=== PATIENT | male | born 1950 | race Caucasian/White ===

== ENCOUNTER 2017-10-29 15:56 | Inpatient (IN) ==
[2017-10-29] MEDS ORDERED: 0.9 % SODIUM CHLORIDE 1,000 ML IV ONE ×3 (16:05→18:55)
--- NOTE | 2017-10-29 16:11 | Emergency Department Note ---
Overdose HPI - General Chief Complaint: Overdose Stated Complaint: Unresponsive, Overdose Time Seen by Provider: 10/29/17 16:05 Mode of arrival: ambulatory - History of Present Illness HPI Narrative[place]. Found down, presumed overdose of sleeping pills. Narcan in the field, unresponsive. Nasal trumpet placed. No resuscitation given. Other history not available - Related Data Home Medications Medication Instructions Recorded Confirmed cholecalciferol (vitamin D3) 400 400 unit PO QDAY 08/29/15 09/14/17 unit capsule ipratropium 20 mcg-albuterol 100 1 inh INHALATION QID 08/29/15 09/14/17 mcg/actuation mist for inhalation omeprazole 20 mg capsule,delayed 20 mg PO QDAY 08/29/15 09/14/17 release oxybutynin chloride ER 10 mg 10 mg PO QDAY 08/29/15 09/14/17 tablet,extended release 24 hr polyethylene glycol 3350 17 17 g PO QDAY 08/29/15 09/14/17 gram/dose oral powder tamsulosin 0.4 mg capsule 0.4 mg PO QDAY 08/29/15 09/14/17 amitriptyline 50 mg tablet 50 mg PO QDAY tab 10/02/15 09/14/17 Previous Rx's Medication Instructions Recorded HYDROcodone/APAP 10/325MG [[place] 1 tab PO Q4H PRN #15 tablet 02/23/17 10/325Mg] Allergies Allergy/AdvReac Type Severity Reaction Status Date / Time chlorpromazine Allergy Unknown unknown Verified 05/31/16 13:57 [From Thorazine] Phenothiazines Allergy Unknown unknown Verified 05/31/16 13:57 Sulfa (Sulfonamide Allergy Unknown unknown Verified 05/31/16 13:57 Antibiotics) Review of Systems Limitations: ROS unobtainable due to patients medical condition Past Medical History - Past Medical History Source: old records reviewed Medical history: Reports: COPD, GERD, kidney stones, other (chronic pain, multiple surgeries on hips) Psychiatric history: Reports: no psych history Surgical history ED: Reports: cholecystectomy, hip replacement, other - Social History smoking status: Current every day smoker Alcohol use: Reports: None Physical Exam General appearance: obtunded Head: atraumatic, normocephalic Eye: Present: other (Constricted pupils, symmetrical) ENT: mucous membranes moist Neck: Present: normal inspection. Absent: lymphadenopathy Chest: Present: normal inspection, symmetric chest wall rise, other (Grunting slightly) Respiratory: Present: normal lung sounds bilaterally. Absent: respiratory distress Cardiovascular: Present: regular rate, normal rhythm Abdominal: Present: soft. Absent: tenderness Extremities: Present: normal inspection Neurological: Present: other (Symmetrical tone, GCS 7) Skin: Present: intact Course - Reevaluation(s) Reevaluation #1: report of 75 baclofen ingested, daughter reported to nursing by phone that patient had told her of suicide plan and intent. poison control notified, advises tele monitoring and airway 24-48 hrs Time: 18:21 Vital Signs Temperature 96.6 F L 10/29/17 16:04 Pulse Rate 67 10/29/17 16:04 Respiratory Rate 10 L 10/29/17 16:04 Blood Pressure 187/102 10/29/17 16:04 Pulse Oximetry (%) 95 10/29/17 16:04 Temperature 96.4 F L 10/29/17 18:02 Pulse Rate 91 H 10/29/17 18:13 Respiratory Rate 17 10/29/17 18:13 Blood Pressure 182/107 10/29/17 18:01 Pulse Oximetry (%) 96 10/29/17 18:13 Overdose - Lab Data Lab results reviewed: Yes I reviewed the patient's lab results. Result diagrams: 10/29/17 16:11 10/29/17 16:11 Lab Results 10/29/17 10/29/17 10/29/17 Range/Units 16:11 16:11 16:11 WBC 10.0 (4.5-11.0) K/mcL RBC 4.52 (4.50-5.90) M/mcL Hgb 13.5 (13.5-16.5) g/dL Hct 40.1 L (41.0-55.0) % MCV 88.8 (80.0-100.0) fL MCH 29.8 (26.0-34.0) pg MCHC 33.6 (31.0-36.0) g/dL RDW 14.6 H (11.5-14.5) % Plt Count 129 L (140-440) K/mcL MPV 9.9 (7.4-10.4) fL Gran % 80.4 H (38.0-78.0) % Lymph % (Auto) 9.9 L (15.5-49.0) % [place] % (Auto) 8.6 (1.0-12.0) % Eos % (Auto) 0.8 (0.0-7.0) % Baso % (Auto) 0.3 (0.0-2.0) % Gran # 8.1 H (1.8-8.0) K/mcL Lymph # (Auto) 1.0 L (1.5-4.8) K/mcL [place] # (Auto) 0.9 (0.1-0.9) K/mcL Eos # (Auto) 0.1 (0.0-0.7) K/mcL Baso # (Auto) 0 (0.0-0.3) K/mcL Sodium 133 (133-145) mmol/L Potassium 4.4 (3.3-5.1) mmol/L Chloride 95 L (96-108) mmol/L Carbon Dioxide 24 (22-30) mmol/L Anion Gap 14.0 (8-16) BUN 19 (8-23) mg/dl Creatinine 0.8 (0.7-1.2) mg/dl GFR Calculation 93 Glucose 112 H (70-105) mg/dL Calcium 8.8 (8.6-10.4) mg/dl Total Bilirubin 0.3 (0.0-1.0) mg/dL AST 45 H (0-37) U/l ALT 59 H (0-40) U/l Alkaline Phosphatase 74 (39-117) U/L Troponin T (0-0.03) ng/ml Total Protein 7.2 (5.9-8.4) gm/dL Albumin 4.1 (3.2-5.2) gm/dL Globulin 3.1 (2.2-3.7) gm/dL Albumin/Globulin Ratio 1.3 (1.0-2.3) Urine Color Urine Appearance Urine pH (5.0-9.0) Ur Specific [place] (1.000-1.035) Urine Protein (NEG) mg/dL Urine Glucose (UA) (NEG) mg/dL Urine Ketones (NEG) mg/dL Urine Occult Blood (<0.03) mg/dL Urine Nitrate (NEG) Urine Bilirubin (NEG) mg/dL Urine Urobilinogen (NEG) mg/dL Ur Leukocyte Esterase (NEG) /uL Urine RBC (0-1) /hpf Urine WBC (0-4) /hpf Ur Squamous Epith Cells (0-4) /hpf Urine Bacteria (0) /hpf Hyaline Casts (0-2) /lpf Urine Mucus (0) /hpf Ur Culture Indicated? (()) Salicylates mg/dL Urine Opiates Screen (NONDETECTED) Urine Methadone Screen (NONDETECTED) Acetaminophen ug/mL Ur Barbiturates Screen (NONDETECTED) Ur Phencyclidine Scrn (NONDETECTED) Ur Amphetamines Screen (NONDETECTED) U Benzodiazepines Scrn (NONDETECTED) Urine Cocaine Screen (NONDETECTED) U Marijuana (THC) Screen (NONDETECTED) Ethyl Alcohol < 0.010 (<0.010) gm/dl 10/29/17 10/29/17 10/29/17 Range/Units 16:11 16:11 16:31 WBC (4.5-11.0) K/mcL RBC (4.50-5.90) M/mcL Hgb (13.5-16.5) g/dL Hct (41.0-55.0) % MCV (80.0-100.0) fL MCH (26.0-34.0) pg MCHC (31.0-36.0) g/dL RDW (11.5-14.5) % Plt Count (140-440) K/mcL MPV (7.4-10.4) fL Gran % (38.0-78.0) % Lymph % (Auto) (15.5-49.0) % [place] % (Auto) (1.0-12.0) % Eos % (Auto) (0.0-7.0) % Baso % (Auto) (0.0-2.0) % Gran # (1.8-8.0) K/mcL Lymph # (Auto) (1.5-4.8) K/mcL [place] # (Auto) (0.1-0.9) K/mcL Eos # (Auto) (0.0-0.7) K/mcL Baso # (Auto) (0.0-0.3) K/mcL Sodium (133-145) mmol/L Potassium (3.3-5.1) mmol/L Chloride (96-108) mmol/L Carbon Dioxide (22-30) mmol/L Anion Gap (8-16) BUN (8-23) mg/dl Creatinine (0.7-1.2) mg/dl GFR Calculation Glucose (70-105) mg/dL Calcium (8.6-10.4) mg/dl Total Bilirubin (0.0-1.0) mg/dL AST (0-37) U/l ALT (0-40) U/l Alkaline Phosphatase (39-117) U/L Troponin T < 0.01 (0-0.03) ng/ml Total Protein (5.9-8.4) gm/dL Albumin (3.2-5.2) gm/dL Globulin (2.2-3.7) gm/dL Albumin/Globulin Ratio (1.0-2.3) Urine Color Urine Appearance Urine pH (5.0-9.0) Ur Specific [place] (1.000-1.035) Urine Protein (NEG) mg/dL Urine Glucose (UA) (NEG) mg/dL Urine Ketones (NEG) mg/dL Urine Occult Blood (<0.03) mg/dL Urine Nitrate (NEG) Urine Bilirubin (NEG) mg/dL Urine Urobilinogen (NEG) mg/dL Ur Leukocyte Esterase (NEG) /uL Urine RBC (0-1) /hpf Urine WBC (0-4) /hpf Ur Squamous Epith Cells (0-4) /hpf Urine Bacteria (0) /hpf Hyaline Casts (0-2) /lpf Urine Mucus (0) /hpf Ur Culture Indicated? (()) Salicylates < 0.3 mg/dL Urine Opiates Screen None detected (NONDETECTED) Urine Methadone Screen None detected (NONDETECTED) Acetaminophen < 5.0 ug/mL Ur Barbiturates Screen None detected (NONDETECTED) Ur Phencyclidine Scrn None detected (NONDETECTED) Ur Amphetamines Screen None detected (NONDETECTED) U Benzodiazepines Scrn None detected (NONDETECTED) Urine Cocaine Screen None detected (NONDETECTED) U Marijuana (THC) Screen Suspect positive A (NONDETECTED) Ethyl Alcohol (<0.010) gm/dl 10/29/17 Range/Units 16:31 WBC (4.5-11.0) K/mcL RBC (4.50-5.90) M/mcL Hgb (13.5-16.5) g/dL Hct (41.0-55.0) % MCV (80.0-100.0) fL MCH (26.0-34.0) pg MCHC (31.0-36.0) g/dL RDW (11.5-14.5) % Plt Count (140-440) K/mcL MPV (7.4-10.4) fL Gran % (38.0-78.0) % Lymph % (Auto) (15.5-49.0) % [place] % (Auto) (1.0-12.0) % Eos % (Auto) (0.0-7.0) % Baso % (Auto) (0.0-2.0) % Gran # (1.8-8.0) K/mcL Lymph # (Auto) (1.5-4.8) K/mcL [place] # (Auto) (0.1-0.9) K/mcL Eos # (Auto) (0.0-0.7) K/mcL Baso # (Auto) (0.0-0.3) K/mcL Sodium (133-145) mmol/L Potassium (3.3-5.1) mmol/L Chloride (96-108) mmol/L Carbon Dioxide (22-30) mmol/L Anion Gap (8-16) BUN (8-23) mg/dl Creatinine (0.7-1.2) mg/dl GFR Calculation Glucose (70-105) mg/dL Calcium (8.6-10.4) mg/dl Total Bilirubin (0.0-1.0) mg/dL AST (0-37) U/l ALT (0-40) U/l Alkaline Phosphatase (39-117) U/L Troponin T (0-0.03) ng/ml Total Protein (5.9-8.4) gm/dL Albumin (3.2-5.2) gm/dL Globulin (2.2-3.7) gm/dL Albumin/Globulin Ratio (1.0-2.3) Urine Color Yellow Urine Appearance Clear Urine pH 5.0 (5.0-9.0) Ur Specific [place] 1.016 (1.000-1.035) Urine Protein Neg (NEG) mg/dL Urine Glucose (UA) Negative (NEG) mg/dL Urine Ketones Neg (NEG) mg/dL Urine Occult Blood >=1.0 A (<0.03) mg/dL Urine Nitrate Neg (NEG) Urine Bilirubin Neg (NEG) mg/dL Urine Urobilinogen Neg (NEG) mg/dL Ur Leukocyte Esterase Neg (NEG) /uL Urine RBC 52 H (0-1) /hpf Urine WBC 1 (0-4) /hpf Ur Squamous Epith Cells 0 (0-4) /hpf Urine Bacteria 0 (0) /hpf Hyaline Casts 1 (0-2) /lpf Urine Mucus Few (0) /hpf Ur Culture Indicated? No (()) Salicylates mg/dL Urine Opiates Screen (NONDETECTED) Urine Methadone Screen (NONDETECTED) Acetaminophen ug/mL Ur Barbiturates Screen (NONDETECTED) Ur Phencyclidine Scrn (NONDETECTED) Ur Amphetamines Screen (NONDETECTED) U Benzodiazepines Scrn (NONDETECTED) Urine Cocaine Screen (NONDETECTED) U Marijuana (THC) Screen (NONDETECTED) Ethyl Alcohol (<0.010) gm/dl - Radiology Data Radiology results reviewed: Yes I reviewed the patient's radiology results. no infiltrate - EKG Data EKG attestation: Yes I reviewed and interpreted this EKG. EKG shows normal: sinus rhythm Critical Care Time Critical Care Time: Yes Total Critical Care Time: 45 Attestation: Hypercarbia, hypoventilatory requiring BiPAP support Disposition Pt seen by SLOOP CAPTAIN/PA only: No Clinical Impression: Drug overdose, Suicide attempt by multiple drug overdose, Respiratory failure Disposition: Xfer As Inpt ([facility]) Condition: Serious Referrals: Lakisha Alexander DO [Primary Care Provider] -
[2017-10-29] MEDS ORDERED: ONDANSETRON 4 MG/2 ML VIAL ONE (16:25)
[2017-10-29] MEDS ORDERED: ONDANSETRON 4 MG/2 ML VIAL IV ONE (16:34)
--- NOTE | 2017-10-29 16:54 | XRay Report ---
INDICATION: Possible drug overdose TECHNIQUE: AP chest x-ray,portable upright COMPARISON: 05/31/2016 and 09/26/2009 FINDINGS:Lungs are negative. No parenchymal infiltrate or mass. Heart size and vascularity are unremarkable. No pulmonary edema. No pulmonary congestion. Yessi and mediastinum are negative. No pleural fluid. There is a crescentic vascular and bony the left hemidiaphragm. Appearance is consistent with intragastric air. There is no air above the liver IMPRESSION: Negative portable chest x-ray Interpreted and Authenticated by: Lenny Louise 10/29/17
[2017-10-29 17:01] LABS: Basophils # (Auto) 0 K/mcL (0.0-0.3); Basophils % (Auto) 0.3 % (0.0-2.0); Eosinophils # (Auto) 0.1 K/mcL (0.0-0.7); Eosinophils % (Auto) 0.8 % (0.0-7.0); Granulocytes % (Auto) 80.4 % (38.0-78.0); Lymphocytes % (Auto) 9.9 % (15.5-49.0); Mean Cell Volume 88.8 fL (80.0-100.0); Mean Corpuscular HGB Conc 33.6 g/dL (31.0-36.0); Mean Corpuscular Hemoglobin 29.8 pg (26.0-34.0); Monocytes # (Auto) 0.9 K/mcL (0.1-0.9); Monocytes % (Auto) 8.6 % (1.0-12.0); Platelet Count 129 K/mcL (140-440); RBC 4.52 M/mcL (4.50-5.90); Red Cell Distribution Width 14.6 % (11.5-14.5)
[2017-10-29 17:09] LABS: Appearance,Urine CLEAR; Bacteria,Urine 0 /hpf (0); Bilirubin,Urine NEG (NEG); Color,Urine YELLOW; Glucose,Urine (UA) NEGATIVE (NEG); Leukocyte Esterase,Urine NEG /uL (NEG); Mucus,Urine FEW /hpf (0); Nitrate,Urine NEG (NEG); Protein,Urine NEG (NEG); Specific Gravity,Urine 1.016 (1.000-1.035); Urine Blood >=1.0 mg/dL (<0.03); Urine Hyaline Cast 1 /lpf (0-2); Urine RBC 52 /hpf (0-1); Urine Squamous Epithelial Cell 0 /hpf (0-4); Urine WBC 1 /hpf (0-4); Urobilinogen,Urine NEG (NEG)
--- NOTE | 2017-10-29 17:22 | XRay Report ---
CLINICAL INFORMATION: Nasogastric tube placement TECHNIQUE: AP supine abdomen COMPARISON: None. FINDINGS: Esophagogastric tube in the proximal stomach. The sidehole is at the level of the diaphragm. There is a bubbly appearance consistent with semisolid material in the stomach. IMPRESSION: Esophagogastric tube in the proximal stomach Interpreted and Authenticated by: Lenny Louise 10/29/17
[2017-10-29 17:24] LABS: Amphetamine Screen,Urine NONE DETECTED (NONDETECTED); Benzodiazepines Screen,Urine NONE DETECTED (NONDETECTED); Cocaine Screen,Urine NONE DETECTED (NONDETECTED); Opiate Screen,Urine NONE DETECTED (NONDETECTED)
[2017-10-29 17:29] LABS: ALT/SGPT 59 U/l (0-40); Albumin 4.1 gm/dL (3.2-5.2); Albumin/Globulin Ratio 1.3 (1.0-2.3); Alkaline Phosphatase 74 U/L (39-117); Blood Urea Nitrogen 19 mg/dl (8-23)
[2017-10-29 17:51] LABS: Acetaminophen < 5.0 ug/mL; Salicylate < 0.3 mg/dL
[2017-10-29] MEDS ORDERED: ONDANSETRON 4 MG/2 ML VIAL IV PRN (19:52)
[2017-10-29] MEDS: 0.9 % SODIUM CHLORIDE 10 ML SYRINGE IV SCH (22:13)
[2017-10-29] MEDS: 0.9 % SODIUM CHLORIDE 1,000 ML IV SCH (22:52)
--- NOTE | 2017-10-29 23:16 | Internal Med History&Physical ---
Medical - H&P: [facility] Patient information: Note initiated : 10/29/17 at 11:16 pm Service Date, if different from initiated Date: [] Patient: Uriel Mike a 67 y/o M admitted on 10/29/17 for Unresponsive, Overdose. Chief complaint: AMS History of present illness: Mr. Mike is a 67 year old M, presented by way of ambulance to ED, after found down by room mate. Presumed overdose of sleeping pills. Apparently had called daughter earlier in the day that he was planning to take 75 tablets of Baclofen. As per EMT patient was unresponsive, not responding to Narcan. Nasal trumpet placed. Upon arrival to ED patient was placed on BiPAP ventilator support, requiring 50 % O2 and 5/10 pressures. Temp was 94 and bear hugger was placed on patient. ROS unobtainable: due to mental status Medical - H&P: PMH Medical history: Medical History Osteoarthritis (arthritis due to wear and tear of joints) (Acute) Toe pain, right (Acute) Chest pain (Acute) Muscle spasm (Acute) Drug overdose (Acute) Suicide attempt by multiple drug overdose (Acute) Respiratory failure (Acute) Hx of urinary tract infection (Chronic) Nephrolithiasis (Chronic) Legg-Perthes disease (Chronic) Kidney stones (Chronic) Hepatitis C, chronic (Chronic 09/13/13) Gastroesophageal reflux (Chronic) COPD (chronic obstructive pulmonary disease) (Chronic) Carpal tunnel syndrome (Chronic) Benign localized hyperplasia of prostate without urinary obstruction (Chronic) Adenomatous polyps (Chronic 09/27/13) Surgical history: Past Surgical History Hx of nephrolithotomy with removal of calculi (Acute) Hx of cholecystectomy (Acute) Family history: reviewed and not pertinent Medical - H&P: Meds Home Medications Medication Instructions Recorded Confirmed Type cholecalciferol (vitamin D3) 400 400 unit PO QDAY 08/29/15 09/14/17 History unit capsule ipratropium 20 mcg-albuterol 100 1 inh INHALATION QID 08/29/15 09/14/17 History mcg/actuation mist for inhalation omeprazole 20 mg capsule,delayed 20 mg PO QDAY 08/29/15 09/14/17 History release oxybutynin chloride ER 10 mg 10 mg PO QDAY 08/29/15 09/14/17 History tablet,extended release 24 hr polyethylene glycol 3350 17 17 g PO QDAY 08/29/15 09/14/17 History gram/dose oral powder tamsulosin 0.4 mg capsule 0.4 mg PO QDAY 08/29/15 09/14/17 History amitriptyline 50 mg tablet 50 mg PO QDAY tab 10/02/15 09/14/17 History HYDROcodone/APAP 10/325MG [[place] 1 tab PO Q4H PRN #15 tablet 02/23/17 09/14/17 Rx 10/325Mg] Allergies Allergy/AdvReac Type Severity Reaction Status Date / Time chlorpromazine Allergy Unknown unknown Verified 05/31/16 13:57 [From Thorazine] Phenothiazines Allergy Unknown unknown Verified 05/31/16 13:57 Sulfa (Sulfonamide Allergy Unknown unknown Verified 05/31/16 13:57 Antibiotics) Medical - H&P: Exam - Constitutional Vitals: Temp Pulse Resp BP Pulse Ox 97.7 F 86 8 L 173/102 94 10/29/17 23:01 10/29/17 23:01 10/29/17 23:01 10/29/17 23:01 10/29/17 23:01 General appearance: average body habitus, disheveled - Head Head exam: Present: normal inspection - Eye Pupils: Present: miosis - Respiratory Respiratory exam: Present: normal respiratory exam - Cardiovascular Cardiovascular exam: Present: normal rate and rhythm - GI/Abdominal GI/Abdominal exam: Present: normal bowel sounds, soft - Rectal Rectal exam: Present: deferred Medical - H&P: Reslt - Labs CBC & Chem 7: 10/29/17 16:11 10/29/17 16:11 Labs: Short CBC 10/29/17 Range/Units 16:11 WBC 10.0 (4.5-11.0) K/mcL Hgb 13.5 (13.5-16.5) g/dL Hct 40.1 L (41.0-55.0) % Plt Count 129 L (140-440) K/mcL BMP 10/29/17 16:11 Sodium 133 Potassium 4.4 Chloride 95 L Carbon Dioxide 24 BUN 19 Creatinine 0.8 Glucose 112 H Calcium 8.8 Cardiac Enzymes 10/29/17 Range/Units 16:11 Troponin T < 0.01 (0-0.03) ng/ml Liver Function 10/29/17 Range/Units 16:11 Total Bilirubin 0.3 (0.0-1.0) mg/dL AST 45 H (0-37) U/l ALT 59 H (0-40) U/l Alkaline Phosphatase 74 (39-117) U/L Albumin 4.1 (3.2-5.2) gm/dL Urine 10/29/17 Range/Units 16:31 Urine Color Yellow Urine Appearance Clear Urine pH 5.0 (5.0-9.0) Ur Specific [place] 1.016 (1.000-1.035) Urine Protein Neg (NEG) mg/dL Urine Glucose (UA) Negative (NEG) mg/dL Medical - H&P: A/P (1) Drug overdose Current visit: Yes Status: Acute - Narrative A/P Narrative: 67-YEAR-OLD MALE FOUND DOWN BY ROOM MATE AFTER INGESTION OF UNKNOWN MEDS, LIKELY BACLOFEN. + DRUG OD SUPPORTIVE SUPPORT IVF NON-INVASIVE VENTILATOR SUPPORT PPI + AMS DUE TO DOD + SUICIDE ATTEMPT PSYCH EVAL ONCE STABLE DVT PROPHYLAXIS: LOVENOX
[2017-10-30] MEDS: IPRATROPIUM/ALBUTEROL 3 ML AMPUL.NEB NEB SCH ×4 (01:09→19:28)
[2017-10-30] MEDS: 0.9 % SODIUM CHLORIDE 10 ML SYRINGE IV SCH ×3 (05:40→22:19)
[2017-10-30 05:43] LABS: Basophils # (Auto) 0 K/mcL (0.0-0.3); Basophils % (Auto) 0.1 % (0.0-2.0); Eosinophils # (Auto) 0.1 K/mcL (0.0-0.7); Eosinophils % (Auto) 0.8 % (0.0-7.0); Granulocytes % (Auto) 83.3 % (38.0-78.0); Lymphocytes # (Auto) 0.7 K/mcL (1.5-4.8); Lymphocytes % (Auto) 7.9 % (15.5-49.0); Mean Cell Volume 89.3 fL (80.0-100.0); Mean Corpuscular HGB Conc 32.6 g/dL (31.0-36.0); Mean Corpuscular Hemoglobin 29.1 pg (26.0-34.0); Monocytes # (Auto) 0.7 K/mcL (0.1-0.9); Monocytes % (Auto) 7.9 % (1.0-12.0); Platelet Count 121 K/mcL (140-440); RBC 4.87 M/mcL (4.50-5.90); Red Cell Distribution Width 14.5 % (11.5-14.5)
[2017-10-30 06:08] LABS: Albumin 3.9 gm/dL (3.2-5.2); Blood Urea Nitrogen 13 mg/dl (8-23)
--- NOTE | 2017-10-30 07:29 | XRay Report ---
INDICATION: Drug overdose TECHNIQUE: AP chest x-ray,portable COMPARISON: 10/29/2017 and 05/31/2016 FINDINGS:Esophagogastric tube is unchanged. Tip is in the proximal stomach. Lungs are negative. No acute or focal pulmonary parenchymal infiltrate. No parenchymal mass. Heart size and vascularity are normal. No acute abnormalities. IMPRESSION: Negative AP chest x-ray Interpreted and Authenticated by: Lenny Louise 10/30/17
[2017-10-30] MEDS: ENOXAPARIN 40 MG/0.4 ML SYRINGE SQ SCH (08:39)
[2017-10-30] MEDS: 0.9 % SODIUM CHLORIDE 1,000 ML IV SCH ×2 (08:49→18:39)
[2017-10-30] MEDS: LORazepam 2 MG/ML VIAL IV PRN ×4 (12:20→20:41)
--- NOTE | 2017-10-30 15:54 | Internal Med Progress Note ---
Medical - PN: Subj Patient information: Note initiated : 10/30/17 at 3:47 pm Service Date, if different from initiated Date: [] Patient: Uriel Mike 67 y/o M admitted on 10/29/17 for Unresponsive, Overdose. Interval history: 10/30: OVERNIGHT BIPAP. REMAINS NON-RESPONSIVE TO VERBAL AND TACTILE STIMULI. ET- SUCTIONING FOR SIGNIFICANT AMOUNT OF MUCOID SECRETIONS. WITH SUCTIONING OPENS EYES AND BECOMES AGITATED. GAG REFLEX PRESENT. CARE D/W RT AND NURSING STAFF: ET-INTUBATION AND VENT SUPPORT WOULD PROVIDE AIRWAY PROTECTION AND ABILITY TO CLEAR AIRWAY. WILL PROCEED IF WORSENING CONDITION. AT THIS TIME, STABLE, ABLE TO DO ET SUCTIONING AND APPEARS TO BECOME SLIGHTLY MORE RESPONSIVE. DISCUSSED WITH HIS 2 DAUGHTERS AND GRAND DAUGHTER. THEY AGREE TO VENTILATOR SUPPORT IF TEMPORARY AND WITH CHANGE FOR RECOVERY. HOWEVER, AT THIS TIME FULL RECOVERY OF COGNITION IS UNCERTAIN. WILL CONTINUE TO CLOSELY OBSERVE ON BIPAP AND PROVIDE AGGRESSIVE PULM TOILET. - Constitutional Vitals: Vital Signs Temp Pulse Resp BP Pulse Ox 98.5 F 71 13 176/88 97 10/30/17 12:02 10/30/17 13:14 10/30/17 13:14 10/30/17 12:02 10/30/17 13:14 Period Temp Pulse Resp BP Sys/[place] Pulse Ox Last 24 Hr 94.4 F-98.6 F 58-105 6-20 132-209/81-127 86-100 Intake and Output 10/30/17 10/30/17 10/30/17 05:59 13:59 21:59 Intake Total 500 / 500 995 / 995 Output Total 2550 / 2550 1125 / 1125 Balance -2049 -2049 -130 / -130 Weight 152 lb 6.4 oz Patient Weight 10/31/17 05:59 Weight 152 lb 6.4 oz Intake & Output: Intake & Output 10/30/17 10/30/17 10/30/17 05:59 13:59 21:59 Intake Total 500 / 500 995 / 995 Output Total 2550 / 2550 1125 / 1125 Balance -2049 / -130 / -130 Weight 152 lb 6.4 oz Intake: IV 500 / 500 995 / 995 Sodium Chloride 0.9% 1,000 ml @ 995 / 995 100 mls/hr IV .Q10H MARIA LUZ Rx#: [id number] Output: Urine Catheter Amount 2550 / 2550 1125 / 1125 General appearance: disheveled, thin - Respiratory Respiratory exam: Present: rhonchi Additional comments: ON BIPAP NON-INVASIVE VENTILATOR SUPPORT - Cardiovascular Cardiovascular exam: Present: normal rate and rhythm - GI/Abdominal GI/Abdominal exam: Present: normal bowel sounds, soft - Extremities Exam Extremities exam: Present: normal inspection Medical - PN: Obj Da - Labs CBC & Chem 7: 10/30/17 03:46 10/30/17 03:46 Labs: Abnormal Lab Results 10/30/17 10/29/17 10/29/17 03:46 16:31 16:31 Hct RDW Plt Count 121 L Gran % 83.3 H Lymph % (Auto) 7.9 L Gran # Lymph # (Auto) 0.7 L Chloride Glucose AST ALT Urine Occult Blood >=1.0 A Urine RBC 52 H U Marijuana (THC) Screen Suspect positive A 10/29/17 10/29/17 16:11 16:11 Hct 40.1 L RDW 14.6 H Plt Count 129 L Gran % 80.4 H Lymph % (Auto) 9.9 L Gran # 8.1 H Lymph # (Auto) 1.0 L Chloride 95 L Glucose 112 H AST 45 H ALT 59 H Urine Occult Blood Urine RBC U Marijuana (THC) Screen Meds: Medications Albuterol/Ipratropium (Duoneb) 3 ml NEB Q6HRT [facility] Last Admin: 10/30/17 13:11 Dose: 3 ml Enoxaparin Sodium (Lovenox) 40 mg SQ DAILY [facility] Last Admin: 10/30/17 08:39 Dose: 40 mg Sodium Chloride (Sodium Chloride 0.9%) 1,000 mls @ 100 mls/hr IV .Q10H [facility] Last Admin: 10/30/17 08:49 Dose: 100 mls/hr Lorazepam (Ativan) 1 mg IV Q2HP PRN PRN Reason: Agitation Last Admin: 10/30/17 14:30 Dose: 1 mg Ondansetron HCl (Zofran) 4 mg IV Q4-6HP PRN PRN Reason: Nausea And Vomiting Sodium Chloride (Saline Flush) 10 ml IV Q8 [facility] Last Admin: 10/30/17 05:40 Dose: 10 ml Medical - PN: A/P - Time Spent With Patient Total time spent is greater than 50% in coordination of care (as documented) at patient's floor/unit and/or counseling patient: 25 - 35 minutes (1) Drug overdose Status: Acute Current Visit: Yes - Narrative A/P Narrative: A/P Narrative: 67-YEAR-OLD MALE FOUND DOWN BY ROOM MATE AFTER INGESTION OF UNKNOWN MEDS, LIKELY BACLOFEN. + DRUG OD SUPPORTIVE SUPPORT IVF NON-INVASIVE VENTILATOR SUPPORT PPI + AMS DUE TO DOD + SUICIDE ATTEMPT PSYCH EVAL ONCE STABLE PLAN: CONTINUE NON-INVASIVE VENTILATOR SUPPORT WITH BIPAP AND AGGRESSIVE PULMONARY TOILET. IVF Medical - PN: Qual - VTE Deep Vein Thrombosis/Pulmonary Embolism Present on Admission: No
[2017-10-30] MEDS ORDERED: PROPOFOL 200 MG/20 ML VIAL IV ONE (17:30)
[2017-10-30] MEDS ORDERED: MIDAZOLAM 5 MG/5 ML VIAL IV ONE (17:30)
[2017-10-30] MEDS ORDERED: ROCURONIUM 10 MG/ML ML IV ONE (17:30)
--- NOTE | 2017-10-30 17:57 | XRay Report ---
INDICATION: Intubation TECHNIQUE: AP chest x-ray, semierect portable COMPARISON: Previous examination dated 10/30/2017 FINDINGS:Endotracheal tube with its tip 4 cm above the michelle. No change in position of esophagogastric tube. Lungs remain normal. No focal infiltrate or mass. Heart size and vascularity are normal. IMPRESSION: Endotracheal tube tip 4 cm above the michelle Interpreted and Authenticated by: Lenny Louise 10/30/17
[2017-10-30] MEDS: PROPOFOL 1,000 MG in PREMIX 1 BAG IV SCH (19:00)
[2017-10-30] MEDS: CHLORHEXIDINE GLUCONATE 1 ML ORAL.SOL SWABMOUTH SCH (20:43)
[2017-10-31] MEDS: IPRATROPIUM/ALBUTEROL 3 ML AMPUL.NEB NEB SCH ×4 (00:23→19:04)
[2017-10-31] MEDS: LORazepam 2 MG/ML VIAL IV PRN ×3 (00:51→07:23)
[2017-10-31] MEDS ORDERED: ACETAMINOPHEN 1,000 MG/100 ML BOTTLE IV ONE (02:06)
[2017-10-31] MEDS: PROPOFOL 1,000 MG in PREMIX 1 BAG IV SCH ×3 (02:18→18:42)
[2017-10-31] MEDS: PIPERACILLIN SODIUM/TAZOBACTAM 3.375 GM in DEXTROSE 5% IN WATER 50 ML IV SCH ×4 (03:17→17:56)
[2017-10-31 03:35] LABS: Basophils # (Auto) 0 K/mcL (0.0-0.3); Basophils % (Auto) 0 % (0.0-2.0); Eosinophils # (Auto) 0 K/mcL (0.0-0.7); Eosinophils % (Auto) 0.3 % (0.0-7.0); Granulocytes % (Auto) 90.4 % (38.0-78.0); Lymphocytes # (Auto) 0.6 K/mcL (1.5-4.8); Lymphocytes % (Auto) 6.5 % (15.5-49.0); Mean Cell Volume 88.4 fL (80.0-100.0); Mean Corpuscular Hemoglobin 29.2 pg (26.0-34.0); Monocytes # (Auto) 0.2 K/mcL (0.1-0.9); Monocytes % (Auto) 2.8 % (1.0-12.0); Platelet Count 105 K/mcL (140-440); RBC 4.71 M/mcL (4.50-5.90); Red Cell Distribution Width 14.2 % (11.5-14.5)
[2017-10-31 04:06] LABS: ALT/SGPT 51 U/l (0-40); Albumin 3.6 gm/dL (3.2-5.2); Albumin/Globulin Ratio 1.1 (1.0-2.3); Alkaline Phosphatase 75 U/L (39-117); Blood Urea Nitrogen 12 mg/dl (8-23)
[2017-10-31] MEDS: 0.9 % SODIUM CHLORIDE 1,000 ML IV SCH ×3 (05:25→21:30)
--- NOTE | 2017-10-31 07:09 | XRay Report ---
INDICATION: Drug overdose. Follow-up. TECHNIQUE: AP chest x-ray,portable COMPARISON: Previous examinations dated 10/30/2017 and 10/29/2017 FINDINGS:No change in position of endotracheal tube and esophagogastric tube. Endotracheal tube tip remains 4 cm above the michelle. Lungs are negative. No parenchymal infiltrate or mass. Heart size and vascularity are normal. No acute or focal abnormality. IMPRESSION: 1. No change in endotracheal tube or esophagogastric tube 2. No acute or focal abnormality Interpreted and Authenticated by: Lenny Louise 10/31/17
[2017-10-31] MEDS: 0.9 % SODIUM CHLORIDE 10 ML SYRINGE IV SCH ×3 (07:23→21:25)
[2017-10-31] MEDS: PANTOPRAZOLE 40 MG VIAL IV SCH (08:21)
[2017-10-31] MEDS: CHLORHEXIDINE GLUCONATE 1 ML ORAL.SOL SWABMOUTH SCH ×2 (08:21→21:24)
[2017-10-31] MEDS: ENOXAPARIN 40 MG/0.4 ML SYRINGE SQ SCH (08:22)
--- NOTE | 2017-10-31 12:46 | Internal Med Progress Note ---
Medical - PN: Subj Patient information: Note initiated : 10/31/17 at 12:42 pm Service Date, if different from initiated Date: [] Patient: Uriel Mike 67 y/o M admitted on 10/29/17 for Unresponsive, Overdose. Interval history: 10/30: OVERNIGHT BIPAP. REMAINS NON-RESPONSIVE TO VERBAL AND TACTILE STIMULI. ET- SUCTIONING FOR SIGNIFICANT AMOUNT OF MUCOID SECRETIONS. WITH SUCTIONING OPENS EYES AND BECOMES AGITATED. GAG REFLEX PRESENT. CARE D/W RT AND NURSING STAFF: ET-INTUBATION AND VENT SUPPORT WOULD PROVIDE AIRWAY PROTECTION AND ABILITY TO CLEAR AIRWAY. WILL PROCEED IF WORSENING CONDITION. AT THIS TIME, STABLE, ABLE TO DO ET SUCTIONING AND APPEARS TO BECOME SLIGHTLY MORE RESPONSIVE. DISCUSSED WITH HIS 2 DAUGHTERS AND GRAND DAUGHTER. THEY AGREE TO VENTILATOR SUPPORT IF TEMPORARY AND WITH CHANGE FOR RECOVERY. HOWEVER, AT THIS TIME FULL RECOVERY OF COGNITION IS UNCERTAIN. WILL CONTINUE TO CLOSELY OBSERVE ON BIPAP AND PROVIDE AGGRESSIVE PULM TOILET. AROUND 5 PM MORE AGITATION, DESPITE ATIVAN. NON-PURPOSEFUL MOVEMENT OF UPPER BODY AND LOWER EXTREMITIES. NO MEANINGFUL COMMUNICATION. ANESTHESIA CONSULTED TO INTUBATE IN ORDER TO BE ABLE TO CONTROL AIRWAYS AND MAKE PATIENT MORE COMFORTABLE WITH SEDATIVES. INTUBATED WO DIFFICULTY BY ANESTHESIA. # 8 IN. 10/31: TEMP SPIKE OVERNIGHT. HEMODYNAMICS STABLE. BLOOD C/S OBTAINED. ZOSYN STARTED. NEURO STATUS SAME. ON PROPOFOL LIGHTLY SEDATED. - Constitutional Vitals: Vital Signs Temp Pulse Resp BP Pulse Ox 100.8 F H 100 H 16 123/81 97 10/31/17 12:01 10/31/17 12:01 10/31/17 09:46 10/31/17 12:01 10/31/17 12:01 Period Temp Pulse Resp BP Sys/Carrion Pulse Ox Last 24 Hr 98.6 F-101.6 F 69-128 10-19 75-174/55-120 88-100 Intake and Output 10/30/17 10/31/17 10/31/17 21:59 05:59 13:59 Intake Total 1000 / 1000 1250 / 1250 150 / 150 Output Total 1015 / 1015 685 / 685 250 / 250 Balance -15 / -15 565 / 565 -100 / -100 Weight 147 lb 2 oz 147 lb 2 oz Patient Weight 11/01/17 05:59 Weight 147 lb 2 oz Intake & Output: Intake & Output 10/30/17 10/31/17 10/31/17 21:59 05:59 13:59 Intake Total 1000 / 1000 1250 / 1250 150 / 150 Output Total 1015 / 1015 685 / 685 250 / 250 Balance -15 / -15 565 / 565 -100 / -100 Weight 147 lb 2 oz 147 lb 2 oz Intake: IV 1000 / 1000 1250 / 1250 150 / 150 Sodium Chloride 0.9% 1,000 ml @ 1000 / 1000 1000 / 1000 100 mls/hr IV .Q10H [facility] Rx#: [id number] Zosyn 3.375 gm In Dextrose 5% 50 / 50 50 / 50 in Water 50 ml @ 100 mls/hr IV Q6H [facility] Rx#:[id number] Diprivan 1,000 mg In Premix 1 100 / 100 100 / 100 Bag @ 5 MCG/KG/MIN 2.07 mls/hr IV .Q24H [facility] Rx#:[id number] Oral 0 / 0 Output: Gastric Drainage 150 / 150 300 / 300 Left Nare NG/OG 150 / 150 300 / 300 Urine Catheter Amount 865 / 865 385 / 385 250 / 250 Other: # Bowel Movements 0 General appearance: mild distress, thin - Neck Additional comments: ETT IN SIZE # 8 - Respiratory Respiratory exam: Present: rhonchi Additional comments: ON VENTILATOR SUPPORT - Cardiovascular Cardiovascular exam: Present: normal rate and rhythm - GI/Abdominal GI/Abdominal exam: Present: normal bowel sounds, soft - Extremities Exam Extremities exam: Present: normal inspection. Absent: calf tenderness, pedal edema Medical - PN: Obj Da - Labs CBC & Chem 7: 10/31/17 03:10 10/31/17 03:10 Labs: Abnormal Lab Results 10/31/17 10/31/17 10/30/17 03:10 03:10 03:46 Hct RDW Plt Count 105 L 121 L Gran % 90.4 H 83.3 H Lymph % (Auto) 6.5 L 7.9 L Gran # Lymph # (Auto) 0.6 L 0.7 L Chloride Glucose 113 H Phosphorus 2.5 L AST 40 H ALT 51 H Urine Occult Blood Urine RBC U Marijuana (THC) Screen 10/29/17 10/29/17 10/29/17 16:31 16:31 16:11 Hct RDW Plt Count Gran % Lymph % (Auto) Gran # Lymph # (Auto) Chloride 95 L Glucose 112 H Phosphorus AST 45 H ALT 59 H Urine Occult Blood >=1.0 A Urine RBC 52 H U Marijuana (THC) Screen Suspect positive A 10/29/17 16:11 Hct 40.1 L RDW 14.6 H Plt Count 129 L Gran % 80.4 H Lymph % (Auto) 9.9 L Gran # 8.1 H Lymph # (Auto) 1.0 L Chloride Glucose Phosphorus AST ALT Urine Occult Blood Urine RBC U Marijuana (THC) Screen Meds: Medications Albuterol/Ipratropium (Duoneb) 3 ml NEB Q6HRT [facility] Last Admin: 10/31/17 07:20 Dose: 3 ml Chlorhexidine Gluconate (Peridex) 15 ml SWABMOUTH BID [facility] Last Admin: 10/31/17 08:21 Dose: 15 ml Enoxaparin Sodium (Lovenox) 40 mg SQ DAILY [facility] Last Admin: 10/31/17 08:22 Dose: 40 mg Sodium Chloride (Sodium Chloride 0.9%) 1,000 mls @ 100 mls/hr IV .Q10H [facility] Last Admin: 10/31/17 05:25 Dose: 100 mls/hr Propofol 1,000 mg/ Premix 100 mls @ 2.07 mls/hr IV .Q24H [facility]; 5 MCG/KG/MIN PRN Reason: Protocol Last Admin: 10/31/17 11:46 Dose: 30 mcg/kg/min, 12.44 mls/hr Piperacillin Sod/Tazobactam (Sod 3.375 gm/ Dextrose) 50 mls @ 100 mls/hr IV Q6H [facility] Last Infusion: 10/31/17 08:52 Dose: Infused Lorazepam (Ativan) 1 mg IV Q2HP PRN PRN Reason: Agitation Last Admin: 10/31/17 07:23 Dose: 1 mg Ondansetron HCl (Zofran) 4 mg IV Q4-6HP PRN PRN Reason: Nausea And Vomiting Pantoprazole Sodium (Protonix) 40 mg IV QDAY [facility] Last Admin: 10/31/17 08:21 Dose: 40 mg Sodium Chloride (Saline Flush) 10 ml IV Q8 [facility] Last Admin: 10/31/17 07:23 Dose: 10 ml - ABG Interpretation ABG results: PH 7.48 PCO2 40 PO2 91 ON 35% 500 ML RATE 15 PEEP 5 Interpretation: respiratory alkalosis, metabolic alkalosis Medical - PN: A/P - Time Spent With Patient Total time spent is greater than 50% in coordination of care (as documented) at patient's floor/unit and/or counseling patient: 15 - 24 minutes (1) Drug overdose Status: Acute Current Visit: Yes - Narrative A/P Narrative: A/P Narrative: 67-YEAR-OLD MALE FOUND DOWN BY ROOM MATE AFTER INGESTION OF UNKNOWN MEDS, LIKELY BACLOFEN. + DRUG OD SUPPORTIVE SUPPORT IVF NON-INVASIVE VENTILATOR SUPPORT PPI + RESP FAILURE ET-intubation 10/30 for agitation, hypopnea and secretions + AMS DUE TO DOD Not resolving Lightly sedated on Propofol, but continues to have non-purposeful movements and non responsive to verbal stimuli + FEVER 10/31: Blood cultures and started on Zosyn + SUICIDE ATTEMPT PSYCH EVAL ONCE STABLE PLAN: CONTINUE VENTILATOR SUPPORT WITH BIPAP AND AGGRESSIVE PULMONARY TOILET. IVF START TF CARE CONFERENCE WITH FAMILY Medical - PN: Qual - VTE Deep Vein Thrombosis/Pulmonary Embolism Present on Admission: No
[2017-10-31] MEDS: ACETAMINOPHEN 1,000 MG/100 ML BOTTLE IV PRN (16:51)
[2017-10-31] MEDS: fentaNYL 100 MCG/2 ML VIAL IV PRN (21:34)
[2017-10-31] MEDS ORDERED: fentaNYL 100 MCG/2 ML VIAL IV ONE (21:42)
[2017-10-31 22:33] LABS: Albumin 3.1 gm/dL (3.2-5.2); Blood Urea Nitrogen 12 mg/dl (8-23)
[2017-11-01] MEDS: PIPERACILLIN SODIUM/TAZOBACTAM 3.375 GM in DEXTROSE 5% IN WATER 50 ML IV SCH ×4 (00:19→17:04)
[2017-11-01] MEDS: PROPOFOL 1,000 MG in PREMIX 1 BAG IV SCH ×4 (01:17→21:20)
[2017-11-01] MEDS: IPRATROPIUM/ALBUTEROL 3 ML AMPUL.NEB NEB SCH ×4 (02:41→19:10)
[2017-11-01] MEDS: 0.9 % SODIUM CHLORIDE 1,000 ML IV SCH ×3 (02:50→17:06)
[2017-11-01 04:56] LABS: Basophils # (Auto) 0 K/mcL (0.0-0.3); Basophils % (Auto) 0.3 % (0.0-2.0); Eosinophils # (Auto) 0.1 K/mcL (0.0-0.7); Eosinophils % (Auto) 1.1 % (0.0-7.0); Granulocytes % (Auto) 82.8 % (38.0-78.0); Lymphocytes # (Auto) 0.6 K/mcL (1.5-4.8); Lymphocytes % (Auto) 7.9 % (15.5-49.0); Mean Cell Volume 88.8 fL (80.0-100.0); Mean Corpuscular HGB Conc 32.9 g/dL (31.0-36.0); Mean Corpuscular Hemoglobin 29.2 pg (26.0-34.0); Monocytes # (Auto) 0.7 K/mcL (0.1-0.9); Monocytes % (Auto) 7.9 % (1.0-12.0); Platelet Count 103 K/mcL (140-440); RBC 4.53 M/mcL (4.50-5.90); Red Cell Distribution Width 14.1 % (11.5-14.5)
[2017-11-01] MEDS: 0.9 % SODIUM CHLORIDE 10 ML SYRINGE IV SCH ×4 (05:26→22:39)
[2017-11-01] MEDS: fentaNYL 100 MCG/2 ML VIAL IV PRN ×5 (05:26→19:06)
[2017-11-01 06:06] LABS: Albumin 3.1 gm/dL (3.2-5.2)
[2017-11-01] MEDS: ENOXAPARIN 40 MG/0.4 ML SYRINGE SQ SCH (08:39)
[2017-11-01] MEDS: PANTOPRAZOLE 40 MG VIAL IV SCH (08:40)
[2017-11-01] MEDS: CHLORHEXIDINE GLUCONATE 1 ML ORAL.SOL SWABMOUTH SCH ×2 (08:40→21:04)
--- NOTE | 2017-11-01 08:57 | XRay Report ---
INDICATION: Respiratory failure TECHNIQUE: AP chest x-ray,portable COMPARISON: 10/31/2017, 10/30/2017 FINDINGS:No change in endotracheal tube or esophagogastric tube position. Left basilar infiltrate is new since previous examinations. This may be benign volume loss but pneumonia is possible. Continued follow-up recommended. Right lung is clear. IMPRESSION: 1. Left basilar infiltrate. Pneumonia is possible. 2. No change in position of endotracheal tube or esophagogastric tube. Interpreted and Authenticated by: Lenny Louise 11/01/17
[2017-11-01] MEDS ORDERED: MAGNESIUM SULFATE 8.12 MEQ/2 ML VIAL IV ONE (11:26)
[2017-11-01] MEDS ORDERED: POTASSIUM CHLORIDE 20 MEQ/15 ML ML PO ONE (11:27)
[2017-11-01] MEDS ORDERED: MAGNESIUM SULFATE 2 GM/50 ML BAG IV ONE (12:00)
--- NOTE | 2017-11-01 17:59 | Internal Med Progress Note ---
Medical - PN: Subj Patient information: Note initiated : 11/01/17 at 5:56 pm Service Date, if different from initiated Date: [] Patient: Uriel Mike 67 y/o M admitted on 10/29/17 for Unresponsive, Overdose. Chief Complaint: [] Interval history: 10/30: OVERNIGHT BIPAP. REMAINS NON-RESPONSIVE TO VERBAL AND TACTILE STIMULI. ET- SUCTIONING FOR SIGNIFICANT AMOUNT OF MUCOID SECRETIONS. WITH SUCTIONING OPENS EYES AND BECOMES AGITATED. GAG REFLEX PRESENT. CARE D/W RT AND NURSING STAFF: ET-INTUBATION AND VENT SUPPORT WOULD PROVIDE AIRWAY PROTECTION AND ABILITY TO CLEAR AIRWAY. WILL PROCEED IF WORSENING CONDITION. AT THIS TIME, STABLE, ABLE TO DO ET SUCTIONING AND APPEARS TO BECOME SLIGHTLY MORE RESPONSIVE. DISCUSSED WITH HIS 2 DAUGHTERS AND GRAND DAUGHTER. THEY AGREE TO VENTILATOR SUPPORT IF TEMPORARY AND WITH CHANGE FOR RECOVERY. HOWEVER, AT THIS TIME FULL RECOVERY OF COGNITION IS UNCERTAIN. WILL CONTINUE TO CLOSELY OBSERVE ON BIPAP AND PROVIDE AGGRESSIVE PULM TOILET. AROUND 5 PM MORE AGITATION, DESPITE ATIVAN. NON-PURPOSEFUL MOVEMENT OF UPPER BODY AND LOWER EXTREMITIES. NO MEANINGFUL COMMUNICATION. ANESTHESIA CONSULTED TO INTUBATE IN ORDER TO BE ABLE TO CONTROL AIRWAYS AND MAKE PATIENT MORE COMFORTABLE WITH SEDATIVES. INTUBATED WO DIFFICULTY BY ANESTHESIA. # 8 IN. 10/31: TEMP SPIKE OVERNIGHT. HEMODYNAMICS STABLE. BLOOD C/S OBTAINED. ZOSYN STARTED. NEURO STATUS SAME. ON PROPOFOL LIGHTLY SEDATED. 11/01: DAY 3 ON VENTILATOR. SEEMS TO RESPONDS WHEN NAME CALLED. BUT NOT CONSISTENT - Constitutional Vitals: Vital Signs Temp Pulse Resp BP Pulse Ox 100.4 F H 98 H 18 131/81 99 11/01/17 17:00 11/01/17 17:00 11/01/17 17:13 11/01/17 17:00 11/01/17 17:13 Period Temp Pulse Resp BP Sys/Carrion Pulse Ox Last 24 Hr 98.0 F-100.4 F 66-110 12-21 98-142/63-92 92-100 Intake and Output 11/01/17 11/01/17 11/01/17 05:59 13:59 21:59 Intake Total 1434 / 1434 959 / 959 1233 / 1233 Output Total 830 / 830 650 / 650 880 / 880 Balance 604 / 604 309 / 309 353 / 353 Weight 147 lb 9.6 oz Patient Weight 11/02/17 05:59 Weight 147 lb 9.6 oz Intake & Output: Intake & Output 11/01/17 11/01/17 11/01/17 05:59 13:59 21:59 Intake Total 1434 / 1434 959 / 959 1233 / 1233 Output Total 830 / 830 650 / 650 880 / 880 Balance 604 / 604 309 / 309 353 / 353 Weight 147 lb 9.6 oz Intake: IV 1134 / 1134 299 / 299 1110 / 1110 Sodium Chloride 0.9% 1,000 ml @ 1000 / 1000 985 / 985 75 mls/hr IV .[id number] [facility] Rx#: [id number] Zosyn 3.375 gm In Dextrose 5% 50 / 50 100 / 100 50 / 50 in Water 50 ml @ 100 mls/hr IV Q6H [facility] Rx#:[id number] Diprivan 1,000 mg In Premix 1 84 / 84 149 / 149 75 / 75 Bag @ 5 MCG/KG/MIN 2.07 mls/hr IV .Q24H [facility] Rx#:[id number] Tube Feeding 360 / 360 123 / 123 GI Tube Flush 300 / 300 300 / 300 Output: Urine Catheter Amount 830 / 830 650 / 650 880 / 880 General appearance: disheveled, mild distress, thin - Respiratory Respiratory exam: Present: normal respiratory exam Additional comments: ETT# 8. MINIMAL SECETIONS. AC 12. 35% O2 - Cardiovascular Cardiovascular exam: Present: normal rate and rhythm - GI/Abdominal GI/Abdominal exam: Present: normal bowel sounds - Extremities Exam Extremities exam: Present: normal inspection Medical - PN: Obj Da - Labs CBC & Chem 7: 11/01/17 03:38 11/01/17 03:38 Labs: Abnormal Lab Results 11/01/17 11/01/17 10/31/17 03:38 03:38 21:40 Hgb 13.3 L Hct 40.3 L Plt Count 103 L Gran % 82.8 H Lymph % (Auto) 7.9 L Lymph # (Auto) 0.6 L Glucose Phosphorus AST ALT Albumin 3.1 L 3.1 L 10/31/17 10/31/17 10/30/17 03:10 03:10 03:46 Hgb Hct Plt Count 105 L 121 L Gran % 90.4 H 83.3 H Lymph % (Auto) 6.5 L 7.9 L Lymph # (Auto) 0.6 L 0.7 L Glucose 113 H Phosphorus 2.5 L AST 40 H ALT 51 H Albumin Meds: Medications Albuterol/Ipratropium (Duoneb) 3 ml NEB Q6HRT [facility] Last Admin: 11/01/17 13:16 Dose: 3 ml Chlorhexidine Gluconate (Peridex) 15 ml SWABMOUTH BID [facility] Last Admin: 11/01/17 08:40 Dose: 15 ml Enoxaparin Sodium (Lovenox) 40 mg SQ DAILY [facility] Last Admin: 11/01/17 08:39 Dose: 40 mg Fentanyl (Sublimaze) 25 mcg IV Q2HP PRN PRN Reason: PAIN LEVEL > 6 Last Admin: 11/01/17 17:21 Dose: 25 mcg Propofol 1,000 mg/ Premix 100 mls @ 2.07 mls/hr IV .Q24H [facility]; 5 MCG/KG/MIN PRN Reason: Protocol Last Titration: 11/01/17 17:18 Dose: 35 mcg/kg/min, 14.51 mls/hr Piperacillin Sod/Tazobactam (Sod 3.375 gm/ Dextrose) 50 mls @ 100 mls/hr IV Q6H [facility] Last Infusion: 11/01/17 17:34 Dose: Infused Acetaminophen (Ofirmev) 1,000 mg in 100 mls @ 200 mls/hr IV Q6HP PRN PRN Reason: PAIN/FEVER > 101 Last Infusion: 10/31/17 17:21 Dose: Infused Sodium Chloride (Sodium Chloride 0.9%) 1,000 mls @ 75 mls/hr IV .[id number] [facility] Last Admin: 11/01/17 17:06 Dose: 75 mls/hr Lorazepam (Ativan) 1 mg IV Q2HP PRN PRN Reason: Agitation Last Admin: 10/31/17 07:23 Dose: 1 mg Ondansetron HCl (Zofran) 4 mg IV Q4-6HP PRN PRN Reason: Nausea And Vomiting Pantoprazole Sodium (Protonix) 40 mg IV QDAY [facility] Last Admin: 11/01/17 08:40 Dose: 40 mg Sodium Chloride (Saline Flush) 10 ml IV Q8 [facility] Last Admin: 11/01/17 12:54 Dose: 10 ml Medical - PN: A/P - Time Spent With Patient Total time spent is greater than 50% in coordination of care (as documented) at patient's floor/unit and/or counseling patient: 15 - 24 minutes (1) Drug overdose Status: Acute Current Visit: Yes - Narrative A/P Narrative: A/P Narrative: 67-YEAR-OLD MALE FOUND DOWN BY ROOM MATE AFTER INGESTION OF UNKNOWN MEDS, LIKELY BACLOFEN. + DRUG OD SUPPORTIVE SUPPORT IVF VENTILATOR SUPPORT PPI + RESP FAILURE ET-intubation 10/30 for agitation, hypopnea and secretions + AMS DUE TO DOD Not resolving Lightly sedated on Propofol, but continues to have non-purposeful movements and non responsive to verbal stimuli + FEVER 10/31: Blood cultures and started on Zosyn BLood c/s: NGTD Sputum: strep CXR 11/01: possible LLL pneumonia + SUICIDE ATTEMPT PSYCH EVAL ONCE STABLE PLAN: CONTINUE VENTILATOR SUPPORT AGGRESSIVE PULMONARY TOILET. IVF cont TF Medical - PN: Qual - VTE Deep Vein Thrombosis/Pulmonary Embolism Present on Admission: No
[2017-11-01] MEDS ORDERED: DEXTROSE 5% IV ONE (19:00)
[2017-11-01] MEDS ORDERED: WATER IV ONE (19:00)
[2017-11-01] MEDS ORDERED: TAZOBACTAM IV ONE (19:00)
[2017-11-01] MEDS ORDERED: PIPERACILLIN SODIUM IV ONE (19:00)
[2017-11-01] MEDS: LORazepam 2 MG/ML VIAL IV PRN (19:07)
[2017-11-01] MEDS: ACETAMINOPHEN 1,000 MG/100 ML BOTTLE IV PRN (19:47)
[2017-11-01] MEDS: PIPERACILLIN SODIUM/TAZOBACTAM 4.5 GM in DEXTROSE 5% IN WATER 50 ML IV SCH (23:54)
[2017-11-02] MEDS: 0.9 % SODIUM CHLORIDE 1,000 ML IV SCH ×3 (00:26→15:30)
[2017-11-02] MEDS: fentaNYL 100 MCG/2 ML VIAL IV PRN ×2 (00:47→19:16)
[2017-11-02] MEDS: LORazepam 2 MG/ML VIAL IV PRN ×3 (00:47→19:16)
[2017-11-02] MEDS: IPRATROPIUM/ALBUTEROL 3 ML AMPUL.NEB NEB SCH ×4 (01:22→19:08)
[2017-11-02] MEDS: PROPOFOL 1,000 MG in PREMIX 1 BAG IV SCH ×4 (02:30→21:44)
[2017-11-02 05:09] LABS: Basophils # (Auto) 0 K/mcL (0.0-0.3); Basophils % (Auto) 0.2 % (0.0-2.0); Eosinophils # (Auto) 0.1 K/mcL (0.0-0.7); Eosinophils % (Auto) 1.3 % (0.0-7.0); Granulocytes % (Auto) 77.9 % (38.0-78.0); Lymphocytes # (Auto) 0.6 K/mcL (1.5-4.8); Lymphocytes % (Auto) 8.1 % (15.5-49.0); Mean Corpuscular HGB Conc 33.1 g/dL (31.0-36.0); Mean Corpuscular Hemoglobin 29.5 pg (26.0-34.0); Monocytes # (Auto) 0.9 K/mcL (0.1-0.9); Monocytes % (Auto) 12.5 % (1.0-12.0); Platelet Count 114 K/mcL (140-440); RBC 4.51 M/mcL (4.50-5.90); Red Cell Distribution Width 13.8 % (11.5-14.5)
[2017-11-02 05:27] LABS: Albumin 3.1 gm/dL (3.2-5.2)
[2017-11-02 05:29] LABS: ALT/SGPT 44 U/l (0-40); Albumin 3.1 gm/dL (3.2-5.2); Albumin/Globulin Ratio 0.8 (1.0-2.3); Alkaline Phosphatase 63 U/L (39-117); Bilirubin,Direct < 0.2 mg/dL (0.0-0.3); Blood Urea Nitrogen 13 mg/dl (8-23); Gamma Glutamyl Transpeptidase 26 U/L (8-61); Magnesium 1.8 mg/dL (1.6-2.5); Uric Acid 1.7 mg/dL (2.5-8.0)
[2017-11-02] MEDS: 0.9 % SODIUM CHLORIDE 10 ML SYRINGE IV SCH ×5 (05:34→22:50)
[2017-11-02] MEDS: PIPERACILLIN SODIUM/TAZOBACTAM 4.5 GM in DEXTROSE 5% IN WATER 50 ML IV SCH ×3 (05:34→16:55)
[2017-11-02] MEDS: ENOXAPARIN 40 MG/0.4 ML SYRINGE SQ SCH (08:40)
[2017-11-02] MEDS: PANTOPRAZOLE 40 MG VIAL IV SCH (08:41)
[2017-11-02] MEDS: CHLORHEXIDINE GLUCONATE 1 ML ORAL.SOL SWABMOUTH SCH ×2 (08:41→20:54)
--- NOTE | 2017-11-02 08:56 | XRay Report ---
INDICATION: Respiratory failure TECHNIQUE: AP chest x-ray,upright portable COMPARISON: 11/01/2017, 10/31/2017, 10/30/2017 FINDINGS:No change in endotracheal tube or esophagogastric tube positions. Left basilar density consistent with pneumonia. This is essentially unchanged since 11/01/2017 but new since 10/31/2017. Right lung remains clear. IMPRESSION: 1. Left basilar infiltrate consistent with pneumonia 2. No interval change since 11/01/2017 Interpreted and Authenticated by: Lenny Louise 11/02/17
--- NOTE | 2017-11-02 10:28 | Internal Med Progress Note ---
Medical - PN: Subj Patient information: Note initiated : 11/02/17 at 10:14 am Service Date, if different from initiated Date: [] Patient: Uriel Mike 67 y/o M admitted on 10/29/17 for Unresponsive, Overdose. Interval history: 10/30: OVERNIGHT BIPAP. REMAINS NON-RESPONSIVE TO VERBAL AND TACTILE STIMULI. ET- SUCTIONING FOR SIGNIFICANT AMOUNT OF MUCOID SECRETIONS. WITH SUCTIONING OPENS EYES AND BECOMES AGITATED. GAG REFLEX PRESENT. CARE D/W RT AND NURSING STAFF: ET-INTUBATION AND VENT SUPPORT WOULD PROVIDE AIRWAY PROTECTION AND ABILITY TO CLEAR AIRWAY. WILL PROCEED IF WORSENING CONDITION. AT THIS TIME, STABLE, ABLE TO DO ET SUCTIONING AND APPEARS TO BECOME SLIGHTLY MORE RESPONSIVE. DISCUSSED WITH HIS 2 DAUGHTERS AND GRAND DAUGHTER. THEY AGREE TO VENTILATOR SUPPORT IF TEMPORARY AND WITH CHANGE FOR RECOVERY. HOWEVER, AT THIS TIME FULL RECOVERY OF COGNITION IS UNCERTAIN. WILL CONTINUE TO CLOSELY OBSERVE ON BIPAP AND PROVIDE AGGRESSIVE PULM TOILET. AROUND 5 PM MORE AGITATION, DESPITE ATIVAN. NON-PURPOSEFUL MOVEMENT OF UPPER BODY AND LOWER EXTREMITIES. NO MEANINGFUL COMMUNICATION. ANESTHESIA CONSULTED TO INTUBATE IN ORDER TO BE ABLE TO CONTROL AIRWAYS AND MAKE PATIENT MORE COMFORTABLE WITH SEDATIVES. INTUBATED WO DIFFICULTY BY ANESTHESIA. # 8 IN. 10/31: TEMP SPIKE OVERNIGHT. HEMODYNAMICS STABLE. BLOOD C/S OBTAINED. ZOSYN STARTED. NEURO STATUS SAME. ON PROPOFOL LIGHTLY SEDATED. 11/01: DAY 3 ON VENTILATOR. SEEMS TO RESPONDS WHEN NAME CALLED. BUT NOT CONSISTENT 11/02: DAY 4 ON VENTILATOR AND ON PROPOFOL INFUSION ABG 7.47/42/77. BE + 6. METABOLIC ALKALOSIS. NO SIGNIFICANT IMPROVEMENT IN MENTATION ON PROPOFOL GTT AND PRN ATIVAN, FENTANYL BP STABLE, LOW GRADE FEVER. WBC 7. CXR STABLE, POSSIBLE LLL INFILTRATE PER POISON CONTROL: BACLOFEN OD CAN TAKE 5 DAYS TO CLEAR - Constitutional Vitals: Vital Signs Temp Pulse Resp BP Pulse Ox 99.5 F H 101 H 16 139/88 97 11/02/17 10:00 11/02/17 10:00 11/02/17 09:30 11/02/17 10:00 11/02/17 10:00 Period Temp Pulse Resp BP Sys/Carrion Pulse Ox Last 24 Hr 98.4 F-100.5 F 85-122 13-19 116-167/74-103 94-100 Intake and Output 11/01/17 11/02/17 11/02/17 21:59 05:59 13:59 Intake Total 1744 / 1744 485 / 485 1271 / 1271 Output Total 1260 / 1260 965 / 965 830 / 830 Balance 484 / 484 -480 / -480 441 / 441 Weight 142 lb 6.4 oz Intake & Output: Intake & Output 11/01/17 11/02/17 11/02/17 21:59 05:59 13:59 Intake Total 1744 / 1744 485 / 485 1271 / 1271 Output Total 1260 / 1260 965 / 965 830 / 830 Balance 484 / 484 -480 / -480 441 / 441 Weight 142 lb 6.4 oz Intake: IV 1321 / 1321 185 / 185 1121 / 1121 Sodium Chloride 0.9% 1,000 ml @ 985 / 985 1000 / 1000 75 mls/hr IV .[id number] [facility] Rx#: [id number] Zosyn 1.125 gm In Dextrose 5% 42 / 42 in Water 50 ml @ 100 mls/hr IV ONCE ONE Rx#:[id number] Zosyn 4.5 gm In Dextrose 5% in 50 / 50 50 / 50 50 / 50 Water 50 ml @ 100 mls/hr IV Q6H [facility] Rx#:[id number] Diprivan 1,000 mg In Premix 1 144 / 144 135 / 135 63 / 63 Bag @ 5 MCG/KG/MIN 2.07 mls/hr IV .Q24H [facility] Rx#:[id number] Tube Feeding 123 / 123 GI Tube Flush 300 / 300 300 / 300 150 / 150 Output: Urine Catheter Amount 1260 / 1260 965 / 965 830 / 830 General appearance: thin - Respiratory Respiratory exam: Present: normal respiratory exam Additional comments: ETT # 8. MINIMAL SECRETIONS. AC 12. - GI/Abdominal GI/Abdominal exam: Present: normal bowel sounds, soft - Extremities Exam Extremities exam: Present: normal inspection. Absent: pedal edema Medical - PN: Obj Da - Labs CBC & Chem 7: 11/02/17 03:50 11/02/17 03:50 Labs: Abnormal Lab Results 11/02/17 11/02/17 11/02/17 03:50 03:50 03:50 Hgb 13.3 L Hct 40.1 L Plt Count 114 L Gran % Lymph % (Auto) 8.1 L [place] % (Auto) 12.5 H Lymph # (Auto) 0.6 L Glucose Uric Acid 1.7 L Phosphorus AST 40 H ALT 44 H Albumin 3.1 L 3.1 L Globulin 3.9 H Albumin/Globulin Ratio 0.8 L 11/01/17 11/01/17 10/31/17 03:38 03:38 21:40 Hgb 13.3 L Hct 40.3 L Plt Count 103 L Gran % 82.8 H Lymph % (Auto) 7.9 L [place] % (Auto) Lymph # (Auto) 0.6 L Glucose Uric Acid Phosphorus AST ALT Albumin 3.1 L 3.1 L Globulin Albumin/Globulin Ratio 10/31/17 10/31/17 03:10 03:10 Hgb Hct Plt Count 105 L Gran % 90.4 H Lymph % (Auto) 6.5 L [place] % (Auto) Lymph # (Auto) 0.6 L Glucose 113 H Uric Acid Phosphorus 2.5 L AST 40 H ALT 51 H Albumin Globulin Albumin/Globulin Ratio Meds: Medications Albuterol/Ipratropium (Duoneb) 3 ml NEB Q6HRT [facility] Last Admin: 11/02/17 01:22 Dose: 3 ml Chlorhexidine Gluconate (Peridex) 15 ml SWABMOUTH BID [facility] Last Admin: 11/02/17 08:41 Dose: 15 ml Enoxaparin Sodium (Lovenox) 40 mg SQ DAILY [facility] Last Admin: 11/02/17 08:40 Dose: 40 mg Fentanyl (Sublimaze) 25 mcg IV Q2HP PRN PRN Reason: PAIN LEVEL > 6 Last Admin: 11/02/17 00:47 Dose: 25 mcg Propofol 1,000 mg/ Premix 100 mls @ 2.07 mls/hr IV .Q24H [facility]; 5 MCG/KG/MIN PRN Reason: Protocol Last Titration: 11/02/17 09:29 Dose: 40 mcg/kg/min, 16.59 mls/hr Acetaminophen (Ofirmev) 1,000 mg in 100 mls @ 200 mls/hr IV Q6HP PRN PRN Reason: PAIN/FEVER > 101 Last Infusion: 11/01/17 20:50 Dose: Infused Sodium Chloride (Sodium Chloride 0.9%) 1,000 mls @ 75 mls/hr IV .[id number] [facility] Last Admin: 11/02/17 07:28 Dose: 75 mls/hr Piperacillin Sod/Tazobactam (Sod 4.5 gm/ Dextrose) 50 mls @ 100 mls/hr IV Q6H [facility] Last Infusion: 11/02/17 06:04 Dose: Infused Lorazepam (Ativan) 1 mg IV Q2HP PRN PRN Reason: Agitation Last Admin: 11/02/17 09:18 Dose: 1 mg Ondansetron HCl (Zofran) 4 mg IV Q4-6HP PRN PRN Reason: Nausea And Vomiting Pantoprazole Sodium (Protonix) 40 mg IV QDAY [facility] Last Admin: 11/02/17 08:41 Dose: 40 mg Sodium Chloride (Saline Flush) 10 ml IV Q8 [facility] Last Admin: 11/02/17 08:41 Dose: 10 ml Medical - PN: A/P - Time Spent With Patient Total time spent is greater than 50% in coordination of care (as documented) at patient's floor/unit and/or counseling patient: 15 - 24 minutes (1) Drug overdose Status: Acute Current Visit: Yes (2) Respiratory failure requiring intubation Status: Acute Current Visit: Yes (3) Malnutrition Status: Acute Current Visit: Yes - Narrative A/P Narrative: A/P Narrative: 67-YEAR-OLD MALE FOUND DOWN BY ROOM MATE AFTER INGESTION OF UNKNOWN MEDS, LIKELY BACLOFEN. + DRUG OD SUPPORTIVE SUPPORT IVF VENTILATOR SUPPORT PPI + RESP FAILURE ET-intubation 10/30 for agitation, hypopnea and secretions 11/02. DAY 4 on ventilator and propofol. Appears to be tolerating Propofol. pH 7.47. Will check lipid profile in am. + AMS DUE TO DOD Not resolving Lightly sedated on Propofol, but continues to have non-purposeful movements and non responsive to verbal stimuli + FEVER 10/31: Blood cultures and started on Zosyn BLood c/s: NGTD Sputum: strep CXR 11/01: possible LLL pneumonia + MALNUTRITION S/P partial gastric resection in past for bleeding. On TF, not well tolerated. + SUICIDE ATTEMPT PSYCH EVAL ONCE MS cleared PLAN 11/02: CONTINUE VENTILATOR SUPPORT AGGRESSIVE PULMONARY TOILET. Cont Zosyn cont TF Medical - PN: Qual - VTE Deep Vein Thrombosis/Pulmonary Embolism Present on Admission: No
[2017-11-02] MEDS: DOCUSATE SODIUM 50 MG/5 ML ORAL.SOL PT SCH (18:27)
[2017-11-02] MEDS: ACETAMINOPHEN 1,000 MG/100 ML BOTTLE IV PRN (19:42)
[2017-11-03] MEDS: fentaNYL 100 MCG/2 ML VIAL IV PRN (00:11)
[2017-11-03] MEDS: LORazepam 2 MG/ML VIAL IV PRN (00:11)
[2017-11-03] MEDS: PIPERACILLIN SODIUM/TAZOBACTAM 4.5 GM in DEXTROSE 5% IN WATER 50 ML IV SCH ×5 (00:16→23:48)
[2017-11-03] MEDS: IPRATROPIUM/ALBUTEROL 3 ML AMPUL.NEB NEB SCH ×4 (00:51→19:11)
[2017-11-03] MEDS: PROPOFOL 1,000 MG in PREMIX 1 BAG IV SCH (02:41)
[2017-11-03 04:59] LABS: ALT/SGPT 45 U/l (0-40); Albumin/Globulin Ratio 0.8 (1.0-2.3); Alkaline Phosphatase 58 U/L (39-117); Blood Urea Nitrogen 17 mg/dl (8-23); HDL Cholesterol 35 mg/dl (>40); LDL Cholesterol,Calculated 69 mg/dl (SEE CHART); Magnesium 1.8 mg/dL (1.6-2.5)
[2017-11-03 05:28] LABS: Basophils # (Auto) 0 K/mcL (0.0-0.3); Basophils % (Auto) 0.1 % (0.0-2.0); Eosinophils # (Auto) 0.1 K/mcL (0.0-0.7); Eosinophils % (Auto) 2.1 % (0.0-7.0); Granulocytes % (Auto) 70.8 % (38.0-78.0); Lymphocytes # (Auto) 0.6 K/mcL (1.5-4.8); Lymphocytes % (Auto) 13.6 % (15.5-49.0); Mean Cell Volume 88.3 fL (80.0-100.0); Mean Corpuscular HGB Conc 33.2 g/dL (31.0-36.0); Mean Corpuscular Hemoglobin 29.3 pg (26.0-34.0); Monocytes # (Auto) 0.6 K/mcL (0.1-0.9); Monocytes % (Auto) 13.4 % (1.0-12.0); Platelet Count 140 K/mcL (140-440); RBC 4.33 M/mcL (4.50-5.90); Red Cell Distribution Width 14.1 % (11.5-14.5)
[2017-11-03] MEDS: 0.9 % SODIUM CHLORIDE 10 ML SYRINGE IV SCH ×7 (05:42→23:48)
--- NOTE | 2017-11-03 07:09 | XRay Report ---
INDICATION: Respiratory failure TECHNIQUE: AP chest x-ray,semierect portable COMPARISON: Chest x-rays dated 11/02/2017, 11/01/2017, 10/31/2017 FINDINGS:No change in positions of endotracheal tube or esophagogastric tube. There is persistent density in the left retrocardiac region consistent with left lower lobe volume loss and possible pneumonia. This is unchanged. Lungs are otherwise negative. No new parenchymal abnormalities. No evidence for congestive heart failure IMPRESSION: 1. Persistent density in left retrocardiac region consistent with volume loss. Pneumonia is possible 2. No interval change Interpreted and Authenticated by: Lenny Louise 11/03/17
[2017-11-03] MEDS: ENOXAPARIN 40 MG/0.4 ML SYRINGE SQ SCH (08:35)
[2017-11-03] MEDS: CHLORHEXIDINE GLUCONATE 1 ML ORAL.SOL SWABMOUTH SCH ×2 (08:35→19:34)
[2017-11-03] MEDS: PANTOPRAZOLE 40 MG VIAL IV SCH (08:35)
[2017-11-03] MEDS: DOCUSATE SODIUM 50 MG/5 ML ORAL.SOL PT SCH (08:36)
--- NOTE | 2017-11-03 11:43 | Internal Med Progress Note ---
Medical - PN: Subj Patient information: Note initiated : 11/03/17 at 11:39 am Service Date, if different from initiated Date: [] Patient: Uriel Mike 67 y/o M admitted on 10/29/17 for Unresponsive, Overdose. Chief Complaint: [] Interval history: 10/30: OVERNIGHT BIPAP. REMAINS NON-RESPONSIVE TO VERBAL AND TACTILE STIMULI. ET- SUCTIONING FOR SIGNIFICANT AMOUNT OF MUCOID SECRETIONS. WITH SUCTIONING OPENS EYES AND BECOMES AGITATED. GAG REFLEX PRESENT. CARE D/W RT AND NURSING STAFF: ET-INTUBATION AND VENT SUPPORT WOULD PROVIDE AIRWAY PROTECTION AND ABILITY TO CLEAR AIRWAY. WILL PROCEED IF WORSENING CONDITION. AT THIS TIME, STABLE, ABLE TO DO ET SUCTIONING AND APPEARS TO BECOME SLIGHTLY MORE RESPONSIVE. DISCUSSED WITH HIS 2 DAUGHTERS AND GRAND DAUGHTER. THEY AGREE TO VENTILATOR SUPPORT IF TEMPORARY AND WITH CHANGE FOR RECOVERY. HOWEVER, AT THIS TIME FULL RECOVERY OF COGNITION IS UNCERTAIN. WILL CONTINUE TO CLOSELY OBSERVE ON BIPAP AND PROVIDE AGGRESSIVE PULM TOILET. AROUND 5 PM MORE AGITATION, DESPITE ATIVAN. NON-PURPOSEFUL MOVEMENT OF UPPER BODY AND LOWER EXTREMITIES. NO MEANINGFUL COMMUNICATION. ANESTHESIA CONSULTED TO INTUBATE IN ORDER TO BE ABLE TO CONTROL AIRWAYS AND MAKE PATIENT MORE COMFORTABLE WITH SEDATIVES. INTUBATED WO DIFFICULTY BY ANESTHESIA. # 8 IN. 10/31: TEMP SPIKE OVERNIGHT. HEMODYNAMICS STABLE. BLOOD C/S OBTAINED. ZOSYN STARTED. NEURO STATUS SAME. ON PROPOFOL LIGHTLY SEDATED. 11/01: DAY 3 ON VENTILATOR. SEEMS TO RESPONDS WHEN NAME CALLED. BUT NOT CONSISTENT 11/02: DAY 4 ON VENTILATOR AND ON PROPOFOL INFUSION ABG 7.47/42/77. BE + 6. METABOLIC ALKALOSIS. NO SIGNIFICANT IMPROVEMENT IN MENTATION ON PROPOFOL GTT AND PRN ATIVAN, FENTANYL BP STABLE, LOW GRADE FEVER. WBC 7. CXR STABLE, POSSIBLE LLL INFILTRATE PER POISON CONTROL: BACLOFEN OD CAN TAKE 5 DAYS TO CLEAR 11/03-patient extubated to nasal cannula oxygen after passing spontaneous trial and weaning off ICU sedation including propofol and fentanyl. Significant spells of agitation however postextubation patient improved. No overnight fever or chills. Stable vitals hemodynamics and lab chemistries.tube feedings discontinued. - Constitutional Vitals: Vital Signs Temp Pulse Resp BP Pulse Ox 99.0 F H 99 H 19 141/87 98 11/03/17 11:01 11/03/17 11:01 11/03/17 11:01 11/03/17 11:01 11/03/17 11:01 Period Temp Pulse Resp BP Sys/Carrion Pulse Ox Last 24 Hr 97.8 F-99.7 F 75-116 12-24 98-143/65-103 94-100 Intake and Output 11/02/17 11/03/17 11/03/17 21:59 05:59 13:59 Intake Total 1397 / 1397 472 / 472 596 / 596 Output Total 800 / 800 820 / 820 1180 / 1180 Balance 597 / 597 -348 / -348 -584 / -584 Weight 141 lb 4.8 oz Intake & Output: Intake & Output 11/02/17 11/03/17 11/03/17 21:59 05:59 13:59 Intake Total 1397 / 1397 472 / 472 596 / 596 Output Total 800 / 800 820 / 820 1180 / 1180 Balance 597 / 597 -348 / -348 -584 / -584 Weight 141 lb 4.8 oz Intake: IV 875 / 875 122 / 122 446 / 446 Sodium Chloride 0.9% 1,000 ml @ 594 / 594 75 mls/hr IV .[id number] [facility] Rx#: [id number] Zosyn 4.5 gm In Dextrose 5% in 50 / 50 50 / 50 50 / 50 Water 50 ml @ 100 mls/hr IV Q6H [facility] Rx#:[id number] Diprivan 1,000 mg In Premix 1 131 / 131 72 / 72 91 / 91 Bag @ 5 MCG/KG/MIN 2.07 mls/hr IV .Q24H [facility] Rx#:[id number] Tube Feeding 372 / 372 GI Tube Flush 150 / 150 350 / 350 150 / 150 Output: Urine Catheter Amount 800 / 800 820 / 820 1180 / 1180 General appearance: cooperative, no acute distress Exam: Minimal anxiety alert and responding to verbal commands Nonlabored breathing Nondistended abdomen Medical - PN: Obj Da - Labs CBC & Chem 7: 11/03/17 03:43 11/03/17 03:43 Labs: Abnormal Lab Results 11/03/17 11/03/17 11/02/17 03:43 03:43 03:50 WBC 4.2 L RBC 4.33 L Hgb 12.7 L Hct 38.3 L Plt Count Gran % Lymph % (Auto) 13.6 L Smith % (Auto) 13.4 H Lymph # (Auto) 0.6 L Uric Acid 1.7 L AST 40 H 40 H ALT 45 H 44 H Albumin 3.0 L 3.1 L Globulin 3.8 H 3.9 H Albumin/Globulin Ratio 0.8 L 0.8 L HDL Cholesterol 35 L 11/02/17 11/02/17 11/01/17 03:50 03:50 03:38 WBC RBC Hgb 13.3 L Hct 40.1 L Plt Count 114 L Gran % Lymph % (Auto) 8.1 L Smith % (Auto) 12.5 H Lymph # (Auto) 0.6 L Uric Acid AST ALT Albumin 3.1 L 3.1 L Globulin Albumin/Globulin Ratio HDL Cholesterol 11/01/17 10/31/17 03:38 21:40 WBC RBC Hgb 13.3 L Hct 40.3 L Plt Count 103 L Gran % 82.8 H Lymph % (Auto) 7.9 L Smith % (Auto) Lymph # (Auto) 0.6 L Uric Acid AST ALT Albumin 3.1 L Globulin Albumin/Globulin Ratio HDL Cholesterol Meds: Medications Albuterol/Ipratropium (Duoneb) 3 ml NEB Q6HRT [facility] Last Admin: 11/03/17 07:11 Dose: 3 ml Chlorhexidine Gluconate (Peridex) 15 ml SWABMOUTH BID [facility] Last Admin: 11/03/17 08:35 Dose: 15 ml Docusate Sodium (Colace) 250 mg PT DAILY [facility] Last Admin: 11/03/17 08:36 Dose: 250 mg Enoxaparin Sodium (Lovenox) 40 mg SQ DAILY [facility] Last Admin: 11/03/17 08:35 Dose: 40 mg Fentanyl (Sublimaze) 25 mcg IV Q2HP PRN PRN Reason: PAIN LEVEL > 6 Last Admin: 11/03/17 00:11 Dose: 25 mcg Propofol 1,000 mg/ Premix 100 mls @ 2.07 mls/hr IV .Q24H [facility]; 5 MCG/KG/MIN PRN Reason: Protocol Last Titration: 11/03/17 09:08 Dose: 25 mcg/kg/min, 10.36 mls/hr Acetaminophen (Ofirmev) 1,000 mg in 100 mls @ 200 mls/hr IV Q6HP PRN PRN Reason: PAIN/FEVER > 101 Last Infusion: 11/02/17 20:55 Dose: Infused Piperacillin Sod/Tazobactam (Sod 4.5 gm/ Dextrose) 50 mls @ 100 mls/hr IV Q6H [facility] Last Infusion: 11/03/17 06:15 Dose: Infused Lorazepam (Ativan) 1 mg IV Q2HP PRN PRN Reason: Agitation Last Admin: 11/03/17 00:11 Dose: 1 mg Ondansetron HCl (Zofran) 4 mg IV Q4-6HP PRN PRN Reason: Nausea And Vomiting Pantoprazole Sodium (Protonix) 40 mg IV QDAY [facility] Last Admin: 11/03/17 08:35 Dose: 40 mg Sodium Chloride (Saline Flush) 10 ml IV Q8 [facility] Last Admin: 11/03/17 09:25 Dose: 10 ml Medical - PN: A/P - Time Spent With Patient Total time spent is greater than 50% in coordination of care (as documented) at patient's floor/unit and/or counseling patient: Greater than 35 minutes (critical care time) - Narrative A/P Narrative: A/P Narrative: 67-YEAR-OLD MALE FOUND DOWN BY ROOM MATE AFTER INGESTION OF UNKNOWN MEDS, LIKELY BACLOFEN. * intentional baclofen overdose- presumed over 35 g intake. Per poison control was managed closely in ICU. consult quality behavioral health in light of suicide attempt. not actively suicidal at this time * Mechanical ventilation for airway protection-extubated to nasal cannula oxygen today * left lower lobe pneumonia and antibiotic [id number] 24 hours * malnutrition-off tube feeds. Start oral feeds per dietary recommendations * DNR plan * ICU management post extubation for 12 hours * QBH consult * Antibiotic coverage to de-escalate Medical - PN: Qual - VTE Deep Vein Thrombosis/Pulmonary Embolism Present on Admission: No
[2017-11-03] MEDS: ACETAMINOPHEN 1,000 MG/100 ML BOTTLE IV PRN (19:25)
[2017-11-03] MEDS ORDERED: LORazepam 2 MG/ML VIAL IV PRN (20:28)
[2017-11-03] MEDS ORDERED: LORazepam 2 MG/ML VIAL ONE (20:42)
[2017-11-03] MEDS ORDERED: HYDROmorphone 2 MG/ML SYRINGE IV PRN (23:55)
[2017-11-04] MEDS ORDERED: HYDROmorphone 2 MG/ML SYRINGE ONE ×2 (00:08→03:50)
[2017-11-04] MEDS: IPRATROPIUM/ALBUTEROL 3 ML AMPUL.NEB NEB SCH ×2 (01:01→07:39)
[2017-11-04] MEDS: PIPERACILLIN SODIUM/TAZOBACTAM 4.5 GM in DEXTROSE 5% IN WATER 50 ML IV SCH (05:37)
[2017-11-04] MEDS: 0.9 % SODIUM CHLORIDE 10 ML SYRINGE IV SCH ×2 (05:37→06:24)
--- NOTE | 2017-11-04 07:26 | XRay Report ---
INDICATION: Extubation TECHNIQUE: AP chest x-ray,portable upright COMPARISON: 11/03/2017, 11/02/2017, 11/01/2017 FINDINGS:Status post extubation. Esophagogastric tube is unchanged. Left base is significantly improved. There is mild residual density. No new abnormalities. No evidence for congestive heart failure IMPRESSION: 1. Status post extubation 2. Improved left base Interpreted and Authenticated by: Lenny Louise 11/04/17
[2017-11-04] MEDS: DOCUSATE SODIUM 50 MG/5 ML ORAL.SOL PT SCH (09:08)
[2017-11-04] MEDS: ENOXAPARIN 40 MG/0.4 ML SYRINGE SQ SCH (09:08)
[2017-11-04] MEDS: PANTOPRAZOLE 40 MG VIAL IV SCH (09:08)
[2017-11-04] MEDS: CHLORHEXIDINE GLUCONATE 1 ML ORAL.SOL SWABMOUTH SCH (09:09)
[2017-11-04] MEDS ORDERED: NICOTINE 21 MG PATCH TOPICAL SCH (10:00)
[2017-11-04] MEDS ORDERED: LORazepam 2 MG/ML VIAL IV PRN (10:29)
[2017-11-04] MEDS ORDERED: ACETAMINOPHEN 1,000 MG/100 ML BOTTLE IV PRN (10:29)
[2017-11-04] MEDS ORDERED: ONDANSETRON 4 MG/2 ML VIAL IV PRN (10:29)
[2017-11-04] MEDS ORDERED: PIPERACILLIN SODIUM/TAZOBACTAM 4.5 GM in DEXTROSE 5% IN WATER 50 ML IV SCH (12:00)
[2017-11-04] MEDS ORDERED: IPRATROPIUM/ALBUTEROL 3 ML AMPUL.NEB NEB SCH (13:00)
--- NOTE | 2017-11-04 14:08 | Internal Med Progress Note ---
Medical - PN: Subj Patient information: Note initiated : 11/04/17 at 2:05 pm Service Date, if different from initiated Date: [] Patient: Uriel Mike 67 y/o M admitted on 10/29/17 for Unresponsive, Overdose. Chief Complaint: [] Interval history: 10/30: OVERNIGHT BIPAP. REMAINS NON-RESPONSIVE TO VERBAL AND TACTILE STIMULI. ET- SUCTIONING FOR SIGNIFICANT AMOUNT OF MUCOID SECRETIONS. WITH SUCTIONING OPENS EYES AND BECOMES AGITATED. GAG REFLEX PRESENT. CARE D/W RT AND NURSING STAFF: ET-INTUBATION AND VENT SUPPORT WOULD PROVIDE AIRWAY PROTECTION AND ABILITY TO CLEAR AIRWAY. WILL PROCEED IF WORSENING CONDITION. AT THIS TIME, STABLE, ABLE TO DO ET SUCTIONING AND APPEARS TO BECOME SLIGHTLY MORE RESPONSIVE. DISCUSSED WITH HIS 2 DAUGHTERS AND GRAND DAUGHTER. THEY AGREE TO VENTILATOR SUPPORT IF TEMPORARY AND WITH CHANGE FOR RECOVERY. HOWEVER, AT THIS TIME FULL RECOVERY OF COGNITION IS UNCERTAIN. WILL CONTINUE TO CLOSELY OBSERVE ON BIPAP AND PROVIDE AGGRESSIVE PULM TOILET. AROUND 5 PM MORE AGITATION, DESPITE ATIVAN. NON-PURPOSEFUL MOVEMENT OF UPPER BODY AND LOWER EXTREMITIES. NO MEANINGFUL COMMUNICATION. ANESTHESIA CONSULTED TO INTUBATE IN ORDER TO BE ABLE TO CONTROL AIRWAYS AND MAKE PATIENT MORE COMFORTABLE WITH SEDATIVES. INTUBATED WO DIFFICULTY BY ANESTHESIA. # 8 IN. 10/31: TEMP SPIKE OVERNIGHT. HEMODYNAMICS STABLE. BLOOD C/S OBTAINED. ZOSYN STARTED. NEURO STATUS SAME. ON PROPOFOL LIGHTLY SEDATED. 11/01: DAY 3 ON VENTILATOR. SEEMS TO RESPONDS WHEN NAME CALLED. BUT NOT CONSISTENT 11/02: DAY 4 ON VENTILATOR AND ON PROPOFOL INFUSION ABG 7.47/42/77. BE + 6. METABOLIC ALKALOSIS. NO SIGNIFICANT IMPROVEMENT IN MENTATION ON PROPOFOL GTT AND PRN ATIVAN, FENTANYL BP STABLE, LOW GRADE FEVER. WBC 7. CXR STABLE, POSSIBLE LLL INFILTRATE PER POISON CONTROL: BACLOFEN OD CAN TAKE 5 DAYS TO CLEAR 11/03-patient extubated to nasal cannula oxygen after passing spontaneous trial and weaning off ICU sedation including propofol and fentanyl. Significant spells of agitation however postextubation patient improved. No overnight fever or chills. Stable vitals hemodynamics and lab chemistries.tube feedings discontinued. 11/04-patient doing well. No overnight events. No fever chills confusion and agitation. Alert oriented tolerating physical therapy and diet. Family at bedside. Transfer to medical floor today. Possible discharge in 24 hours if clinically continues to improve. No signs of suicidal ideation. Q BH eval pending. - Constitutional Vitals: Vital Signs Temp Pulse Resp BP Pulse Ox 98.7 F 105 H 14 126/79 94 11/04/17 13:16 11/04/17 13:23 11/04/17 13:23 11/04/17 13:16 11/04/17 13:17 Period Temp Pulse Resp BP Sys/Carrion Pulse Ox Last 24 Hr 98.4 F-99.8 F 90-110 12-26 109-158/72-91 93-100 Intake and Output 11/04/17 11/04/17 11/04/17 05:59 13:59 21:59 Intake Total 993 / 993 985 / 985 Output Total 770 / 770 660 / 660 Balance 223 / 223 325 / 325 Weight 141 lb 14.4 oz Patient Weight 11/05/17 05:59 Weight 141 lb 14.4 oz Intake & Output: Intake & Output 11/04/17 11/04/17 11/04/17 05:59 13:59 21:59 Intake Total 993 / 993 985 / 985 Output Total 770 / 770 660 / 660 Balance 223 / 223 325 / 325 Weight 141 lb 14.4 oz Intake: IV 50 / 50 50 / 50 Zosyn 4.5 gm In Dextrose 5% in 50 / 50 50 / 50 Water 50 ml @ 100 mls/hr IV Q6H [facility] Rx#:[id number] Oral 420 / 420 Tube Feeding 793 / 793 305 / 305 GI Tube Flush 150 / 150 210 / 210 Output: Urine Catheter Amount 770 / 770 660 / 660 Other: Meal Lunch Percent of Meal Consumed 100% Feeding Ability Assist with Tray Set Up # Bowel Movements 1 General appearance: cooperative, no acute distress Exam: alert oriented nonlabored breathing Nondistended abdomen no anxiety Medical - PN: Obj Da - Labs CBC & Chem 7: 11/03/17 03:43 11/03/17 03:43 Labs: Abnormal Lab Results 11/03/17 11/03/17 11/02/17 03:43 03:43 03:50 WBC 4.2 L RBC 4.33 L Hgb 12.7 L Hct 38.3 L Plt Count Lymph % (Auto) 13.6 L Gilliam % (Auto) 13.4 H Lymph # (Auto) 0.6 L Uric Acid 1.7 L AST 40 H 40 H ALT 45 H 44 H Albumin 3.0 L 3.1 L Globulin 3.8 H 3.9 H Albumin/Globulin Ratio 0.8 L 0.8 L HDL Cholesterol 35 L 11/02/17 11/02/17 03:50 03:50 WBC RBC Hgb 13.3 L Hct 40.1 L Plt Count 114 L Lymph % (Auto) 8.1 L Gilliam % (Auto) 12.5 H Lymph # (Auto) 0.6 L Uric Acid AST ALT Albumin 3.1 L Globulin Albumin/Globulin Ratio HDL Cholesterol Meds: Medications Albuterol/Ipratropium (Duoneb) 3 ml NEB Q6HRT [facility] Last Admin: 11/04/17 13:17 Dose: 3 ml Docusate Sodium (Colace) 250 mg PT DAILY [facility] Enoxaparin Sodium (Lovenox) 40 mg SQ DAILY [facility] Hydromorphone HCl (Dilaudid) 0 mg IV Q4HP PRN PRN Reason: PAIN LEVEL > 6 Acetaminophen (Ofirmev) 1,000 mg in 100 mls @ 200 mls/hr IV Q6HP PRN PRN Reason: PAIN/FEVER > 101 Piperacillin Sod/Tazobactam (Sod 4.5 gm/ Dextrose) 50 mls @ 100 mls/hr IV Q6H [facility] Last Admin: 11/04/17 12:05 Dose: 100 mls/hr Lorazepam (Ativan) 0 mg IV Q4HP PRN PRN Reason: ANXIETY/SEDATION Nicotine (Nicoderm) 21 mg TOPICAL DAILY@1000 [facility] Ondansetron HCl (Zofran) 4 mg IV Q4-6HP PRN PRN Reason: Nausea And Vomiting Pantoprazole Sodium (Protonix) 40 mg IV QDAY [facility] Medical - PN: A/P - Time Spent With Patient Total time spent is greater than 50% in coordination of care (as documented) at patient's floor/unit and/or counseling patient: 15 - 24 minutes - Narrative A/P Narrative: A/P Narrative: 67-YEAR-OLD MALE FOUND DOWN BY ROOM MATE AFTER INGESTION OF UNKNOWN MEDS, LIKELY BACLOFEN. * intentional baclofen overdose- presumed over 35 g intake. Per poison control was managed closely in ICU. quality behavioral health consult elevated in light of suicide attempt. not actively suicidal at this time * Mechanical ventilation for airway protection-extubated 11/03 * left lower lobe pneumonia and antibiotic coverage-DC antibiotics * malnutrition-on oral feeds per dietary recommendations * DNR plan * transfer to medical floor * Q consult * DC antibiotics * Discharge in 24 hours post behavioral health eval Medical - PN: Qual - VTE Deep Vein Thrombosis/Pulmonary Embolism Present on Admission: No
[2017-11-04] MEDS: HYDROmorphone 2 MG/ML SYRINGE IV PRN ×2 (16:14→20:41)
[2017-11-05] MEDS: HYDROmorphone 2 MG/ML SYRINGE IV PRN ×3 (03:25→14:55)
[2017-11-05 05:33] LABS: ALT/SGPT 70 U/l (0-40); Albumin 3.7 gm/dL (3.2-5.2); Albumin/Globulin Ratio 0.9 (1.0-2.3); Alkaline Phosphatase 74 U/L (39-117); Bilirubin,Direct < 0.2 mg/dL (0.0-0.3); Blood Urea Nitrogen 21 mg/dl (8-23); Gamma Glutamyl Transpeptidase 47 U/L (8-61); Magnesium 1.7 mg/dL (1.6-2.5); Uric Acid 4.2 mg/dL (2.5-8.0)
[2017-11-05 06:55] LABS: Basophils # (Auto) 0 K/mcL (0.0-0.3); Basophils % (Auto) 0.5 % (0.0-2.0); Eosinophils # (Auto) 0.2 K/mcL (0.0-0.7); Eosinophils % (Auto) 2.8 % (0.0-7.0); Granulocytes % (Auto) 65.6 % (38.0-78.0); Lymphocytes # (Auto) 0.9 K/mcL (1.5-4.8); Lymphocytes % (Auto) 16.3 % (15.5-49.0); Mean Cell Volume 88.4 fL (80.0-100.0); Mean Corpuscular HGB Conc 32.9 g/dL (31.0-36.0); Mean Corpuscular Hemoglobin 29.1 pg (26.0-34.0); Monocytes # (Auto) 0.8 K/mcL (0.1-0.9); Monocytes % (Auto) 14.8 % (1.0-12.0); Platelet Count 203 K/mcL (140-440); RBC 4.94 M/mcL (4.50-5.90); Red Cell Distribution Width 13.9 % (11.5-14.5)
[2017-11-05] MEDS: PANTOPRAZOLE 40 MG VIAL IV SCH (08:52)
[2017-11-05] MEDS: DOCUSATE SODIUM 50 MG/5 ML ORAL.SOL PT SCH (08:53)
[2017-11-05] MEDS: ENOXAPARIN 40 MG/0.4 ML SYRINGE SQ SCH (08:53)
[2017-11-05] MEDS: NICOTINE 21 MG PATCH TOPICAL SCH (10:31)
--- NOTE | 2017-11-05 10:32 | Internal Med Progress Note ---
Medical - PN: Subj Patient information: Note initiated : 11/05/17 at 10:29 am Service Date, if different from initiated Date: [] Patient: Uriel Mike 67 y/o M admitted on 10/29/17 for Unresponsive, Overdose. Chief Complaint: [] Interval history: 10/30: OVERNIGHT BIPAP. REMAINS NON-RESPONSIVE TO VERBAL AND TACTILE STIMULI. ET- SUCTIONING FOR SIGNIFICANT AMOUNT OF MUCOID SECRETIONS. WITH SUCTIONING OPENS EYES AND BECOMES AGITATED. GAG REFLEX PRESENT. CARE D/W RT AND NURSING STAFF: ET-INTUBATION AND VENT SUPPORT WOULD PROVIDE AIRWAY PROTECTION AND ABILITY TO CLEAR AIRWAY. WILL PROCEED IF WORSENING CONDITION. AT THIS TIME, STABLE, ABLE TO DO ET SUCTIONING AND APPEARS TO BECOME SLIGHTLY MORE RESPONSIVE. DISCUSSED WITH HIS 2 DAUGHTERS AND GRAND DAUGHTER. THEY AGREE TO VENTILATOR SUPPORT IF TEMPORARY AND WITH CHANGE FOR RECOVERY. HOWEVER, AT THIS TIME FULL RECOVERY OF COGNITION IS UNCERTAIN. WILL CONTINUE TO CLOSELY OBSERVE ON BIPAP AND PROVIDE AGGRESSIVE PULM TOILET. AROUND 5 PM MORE AGITATION, DESPITE ATIVAN. NON-PURPOSEFUL MOVEMENT OF UPPER BODY AND LOWER EXTREMITIES. NO MEANINGFUL COMMUNICATION. ANESTHESIA CONSULTED TO INTUBATE IN ORDER TO BE ABLE TO CONTROL AIRWAYS AND MAKE PATIENT MORE COMFORTABLE WITH SEDATIVES. INTUBATED WO DIFFICULTY BY ANESTHESIA. # 8 IN. 10/31: TEMP SPIKE OVERNIGHT. HEMODYNAMICS STABLE. BLOOD C/S OBTAINED. ZOSYN STARTED. NEURO STATUS SAME. ON PROPOFOL LIGHTLY SEDATED. 11/01: DAY 3 ON VENTILATOR. SEEMS TO RESPONDS WHEN NAME CALLED. BUT NOT CONSISTENT 11/02: DAY 4 ON VENTILATOR AND ON PROPOFOL INFUSION ABG 7.47/42/77. BE + 6. METABOLIC ALKALOSIS. NO SIGNIFICANT IMPROVEMENT IN MENTATION ON PROPOFOL GTT AND PRN ATIVAN, FENTANYL BP STABLE, LOW GRADE FEVER. WBC 7. CXR STABLE, POSSIBLE LLL INFILTRATE PER POISON CONTROL: BACLOFEN OD CAN TAKE 5 DAYS TO CLEAR 11/03-patient extubated to nasal cannula oxygen after passing spontaneous trial and weaning off ICU sedation including propofol and fentanyl. Significant spells of agitation however postextubation patient improved. No overnight fever or chills. Stable vitals hemodynamics and lab chemistries.tube feedings discontinued. 11/04-patient doing well. No overnight events. No fever chills confusion and agitation. Alert oriented tolerating physical therapy and diet. Family at bedside. Transfer to medical floor today. Possible discharge in 24 hours if clinically continues to improve. No signs of suicidal ideation. Q BH eval pending. 11/05- patient doing well. No overnight events. No concerns per staff. Not actively suicidal at this time. Await Q evaluation. Anticipate SNF transfer. case management coordinating discharge planning. Tolerating diet and ambulating - Constitutional Vitals: Vital Signs Temp Pulse Resp BP Pulse Ox 97.7 F 105 H 14 138/89 92 11/05/17 07:04 11/05/17 08:32 11/05/17 07:04 11/05/17 07:04 11/05/17 08:32 Period Temp Pulse Resp BP Sys/Carrion Pulse Ox Last 24 Hr 97.5 F-98.7 F 91-105 14-20 126-153/79-92 92-96 Intake and Output 11/04/17 11/05/17 11/05/17 21:59 05:59 13:59 Intake Total 1220 / 1220 525 / 525 360 / 360 Output Total 600 / 600 200 / 200 250 / 250 Balance 620 / 620 325 / 325 110 / 110 Weight 146 lb 8 oz Intake & Output: Intake & Output 11/04/17 11/05/17 11/05/17 21:59 05:59 13:59 Intake Total 1220 / 1220 525 / 525 360 / 360 Output Total 600 / 600 200 / 200 250 / 250 Balance 620 / 620 325 / 325 110 / 110 Weight 146 lb 8 oz Intake: Oral 1220 / 1220 525 / 525 360 / 360 Output: Void Amount 600 / 600 200 / 200 250 / 250 Other: Meal Dinner Breakfast Percent of Meal Consumed 100% 75% Feeding Ability Independent Assist with Tray Set Up # Voids 325 1 General appearance: cooperative, no acute distress Exam: alert oriented Nonlabored breathing No anxiety Cooperative No lymphedema Medical - PN: Obj Da - Labs CBC & Chem 7: 11/05/17 05:30 11/05/17 04:20 Labs: Abnormal Lab Results 11/05/17 11/05/17 11/03/17 05:30 04:20 03:43 WBC RBC Hgb Hct Lymph % (Auto) [place] % (Auto) 14.8 H Lymph # (Auto) 0.9 L Glucose 110 H AST 70 H 40 H ALT 70 H 45 H Albumin 3.0 L Globulin 4.2 H 3.8 H Albumin/Globulin Ratio 0.9 L 0.8 L Triglycerides 165 H HDL Cholesterol 35 L 11/03/17 03:43 WBC 4.2 L RBC 4.33 L Hgb 12.7 L Hct 38.3 L Lymph % (Auto) 13.6 L [place] % (Auto) 13.4 H Lymph # (Auto) 0.6 L Glucose AST ALT Albumin Globulin Albumin/Globulin Ratio Triglycerides HDL Cholesterol Meds: Medications Docusate Sodium (Colace) 250 mg PT DAILY [facility] Last Admin: 11/05/17 08:53 Dose: Not Given Enoxaparin Sodium (Lovenox) 40 mg SQ DAILY [facility] Last Admin: 11/05/17 08:53 Dose: 40 mg Hydromorphone HCl (Dilaudid) 0 mg IV Q4HP PRN PRN Reason: PAIN LEVEL > 6 Last Admin: 11/05/17 08:09 Dose: 0.5 mg Acetaminophen (Ofirmev) 1,000 mg in 100 mls @ 200 mls/hr IV Q6HP PRN PRN Reason: PAIN/FEVER > 101 Lorazepam (Ativan) 0 mg IV Q4HP PRN PRN Reason: ANXIETY/SEDATION Nicotine (Nicoderm) 21 mg TOPICAL DAILY@1000 [facility] Ondansetron HCl (Zofran) 4 mg IV Q4-6HP PRN PRN Reason: Nausea And Vomiting Pantoprazole Sodium (Protonix) 40 mg IV QDAY [facility] Last Admin: 11/05/17 08:52 Dose: 40 mg Medical - PN: A/P - Time Spent With Patient Total time spent is greater than 50% in coordination of care (as documented) at patient's floor/unit and/or counseling patient: 15 - 24 minutes - Narrative A/P Narrative: A/P Narrative: 67-YEAR-OLD MALE FOUND DOWN BY ROOM MATE AFTER INGESTION OF UNKNOWN MEDS, LIKELY BACLOFEN. * intentional baclofen overdose- presumed over 35 g baclofen intake. patient managed closely in ICU for 4 days. Quality behavioral health consulted. not actively suicidal at this time * Mechanical ventilation for airway protection-extubated 11/03. * left lower lobe pneumonia- off antibiotics. Clinically resolved. * malnutrition-on oral feeds per dietary recommendations * DNR plan * await QBH consult * continue physical therapy and dietary interventions * case management to arrange SNF transfer coordination Medical - PN: Qual - VTE Deep Vein Thrombosis/Pulmonary Embolism Present on Admission: No
[2017-11-06 06:34] LABS: Mean Cell Volume 88.3 fL (80.0-100.0); Mean Corpuscular HGB Conc 32.9 g/dL (31.0-36.0); Mean Corpuscular Hemoglobin 29.1 pg (26.0-34.0); Platelet Count 219 K/mcL (140-440); RBC 4.84 M/mcL (4.50-5.90); Red Cell Distribution Width 13.9 % (11.5-14.5)
[2017-11-06 06:52] LABS: ALT/SGPT 68 U/l (0-40); Albumin 3.8 gm/dL (3.2-5.2); Albumin/Globulin Ratio 0.9 (1.0-2.3); Alkaline Phosphatase 72 U/L (39-117); Bilirubin,Direct < 0.2 mg/dL (0.0-0.3); Blood Urea Nitrogen 23 mg/dl (8-23); Gamma Glutamyl Transpeptidase 47 U/L (8-61); Magnesium 1.7 mg/dL (1.6-2.5); Uric Acid 5.5 mg/dL (2.5-8.0)
[2017-11-06 07:58] LABS: Band Neutrophils % 2 % (0-10); Lymphocytes % 16 % (15-49); Monocytes % (Manual) 10 % (1-12); Myelocytes % 1 % (0-0); Platelet Estimate NORMAL (NORMAL); RBC Morphology NORMAL (NORMAL); Segmented Neutrophils % 71 % (38-78)
[2017-11-06] MEDS ORDERED: HYDROcodone/APAP 5/325MG TABLET PO PRN (09:23)
[2017-11-06] MEDS: DOCUSATE SODIUM 50 MG/5 ML ORAL.SOL PT SCH (09:24)
[2017-11-06] MEDS ORDERED: LORazepam 0.5 MG TABLET PO PRN (09:24)
[2017-11-06] MEDS: NICOTINE 21 MG PATCH TOPICAL SCH (09:25)
[2017-11-06] MEDS: ENOXAPARIN 40 MG/0.4 ML SYRINGE SQ SCH (09:25)
[2017-11-06] MEDS: PANTOPRAZOLE 40 MG VIAL IV SCH (09:27)
--- NOTE | 2017-11-06 09:52 | Discharge Summary ---
Medical - DS: Prov Patient information: Note initiated : 11/06/17 at 9:46 am Service Date, if different from initiated Date: [] Patient: Uriel Mike 67 y/o M admitted on 10/29/17 for Unresponsive, Overdose. Chief Complaint: [] Date of admission: 10/29/17 19:47 Discharge date: 11/06/17 Primary care physician: Lakisha Alexander Consults: 10/29/17 18:21 Consult to Physician [CONS] Stat Comment: Consulting Provider: Oscar Gordon Reason For Exam: Physician to Consult Medical - DS: Meds - Discharge Medications Active and Home Medications: Home Medications cholecalciferol (vitamin D3) 400 unit capsule 400 unit PO QDAY 08/29/15 [ History Confirmed 11/04/17 Last Taken 10/30/17 08:00] ipratropium 20 mcg-albuterol 100 mcg/actuation mist for inhalation 1 inh INHALATION QID 08/29/15 [History Confirmed 11/04/17 Last Taken 10/29/17 08:00] omeprazole 20 mg capsule,delayed release 20 mg PO QDAY 08/29/15 [History Confirmed 11/04/17 Last Taken 10/29/17 08:00] oxybutynin chloride ER 10 mg tablet,extended release 24 hr 10 mg PO QDAY [History Confirmed 11/04/17 Last Taken 10/29/17 08:00] polyethylene glycol 3350 17 gram/dose oral powder 17 g PO QDAY 08/29/15 [ History Confirmed 11/04/17 Last Taken Unknown] tamsulosin 0.4 mg capsule 0.4 mg PO QDAY 08/29/15 [History Confirmed 11/04/17 Last Taken Unknown] amitriptyline 50 mg tablet 50 mg PO QDAY tab 10/02/15 [History Confirmed Last Taken Unknown] HYDROcodone/APAP 10/325MG [[place] 10/325Mg] 1 tab PO Q4H PRN #15 tablet 02/23/17 [Rx Confirmed 11/04/17 Last Taken Unknown] Medical - DS: Hosp Hospital course: DISCHARGE DIAGNOSIS 67-YEAR-OLD MALE FOUND DOWN BY ROOM MATE AFTER INGESTION OF UNKNOWN MEDS, LIKELY BACLOFEN. * intentional baclofen overdose- presumed over 35 g baclofen intake. patient managed closely in ICU for 4 days. [facility], [facility] behavioral health consulted And cleared patient for discharge. not actively suicidal at this time. awaiting SNF transfer. Patient will be discharge to swing bed status for continued care * Mechanical ventilation for airway protection-extubated 11/03. * left lower lobe pneumonia- off antibiotics. Clinically resolved. * malnutrition-on oral feeds per dietary recommendations. continue in-hospital nutrition supplements BRIEF HOSPITAL COURSE 10/30: OVERNIGHT BIPAP. REMAINS NON-RESPONSIVE TO VERBAL AND TACTILE STIMULI. ET- SUCTIONING FOR SIGNIFICANT AMOUNT OF MUCOID SECRETIONS. WITH SUCTIONING OPENS EYES AND BECOMES AGITATED. GAG REFLEX PRESENT. CARE D/W RT AND NURSING STAFF: ET-INTUBATION AND VENT SUPPORT WOULD PROVIDE AIRWAY PROTECTION AND ABILITY TO CLEAR AIRWAY. WILL PROCEED IF WORSENING CONDITION. AT THIS TIME, STABLE, ABLE TO DO ET SUCTIONING AND APPEARS TO BECOME SLIGHTLY MORE RESPONSIVE. DISCUSSED WITH HIS 2 DAUGHTERS AND GRAND DAUGHTER. THEY AGREE TO VENTILATOR SUPPORT IF TEMPORARY AND WITH CHANGE FOR RECOVERY. HOWEVER, AT THIS TIME FULL RECOVERY OF COGNITION IS UNCERTAIN. WILL CONTINUE TO CLOSELY OBSERVE ON BIPAP AND PROVIDE AGGRESSIVE PULM TOILET. AROUND 5 PM MORE AGITATION, DESPITE ATIVAN. NON-PURPOSEFUL MOVEMENT OF UPPER BODY AND LOWER EXTREMITIES. NO MEANINGFUL COMMUNICATION. ANESTHESIA CONSULTED TO INTUBATE IN ORDER TO BE ABLE TO CONTROL AIRWAYS AND MAKE PATIENT MORE COMFORTABLE WITH SEDATIVES. INTUBATED WO DIFFICULTY BY ANESTHESIA. # 8 IN. 10/31: TEMP SPIKE OVERNIGHT. HEMODYNAMICS STABLE. BLOOD C/S OBTAINED. ZOSYN STARTED. NEURO STATUS SAME. ON PROPOFOL LIGHTLY SEDATED. 11/01: DAY 3 ON VENTILATOR. SEEMS TO RESPONDS WHEN NAME CALLED. BUT NOT CONSISTENT 11/02: DAY 4 ON VENTILATOR AND ON PROPOFOL INFUSION ABG 7.47/42/77. BE + 6. METABOLIC ALKALOSIS. NO SIGNIFICANT IMPROVEMENT IN MENTATION ON PROPOFOL GTT AND PRN ATIVAN, FENTANYL BP STABLE, LOW GRADE FEVER. WBC 7. CXR STABLE, POSSIBLE LLL INFILTRATE PER POISON CONTROL: BACLOFEN OD CAN TAKE 5 DAYS TO CLEAR 11/03-patient extubated to nasal cannula oxygen after passing spontaneous trial and weaning off ICU sedation including propofol and fentanyl. Significant spells of agitation however postextubation patient improved. No overnight fever or chills. Stable vitals hemodynamics and lab chemistries.tube feedings discontinued. 11/04-patient doing well. No overnight events. No fever chills confusion and agitation. Alert oriented tolerating physical therapy and diet. Family at bedside. Transfer to medical floor today. Possible discharge in 24 hours if clinically continues to improve. No signs of suicidal ideation. Q BH eval pending. 11/05- patient doing well. No overnight events. No concerns per staff. Not actively suicidal at this time. Await Q evaluation. Anticipate SNF transfer. case management coordinating discharge planning. Tolerating diet and ambulating 11/06-patient doing well. No overnight events. Transferring to swing bed status for continued physical therapy and posthospitalization rehabilitation until SNF placement available. Discharge diagnosis: . - Time Spent with Patient Total time spent providing and/or coordinating discharge services: Greater than 30 minutes Medical - DS: Exam - Constitutional Vitals: Vital Signs Temp Pulse Pulse Resp BP Pulse Ox 11/06/17 07:49 98.4 F 12 123/86 95 11/06/17 07:44 105 H 93 11/06/17 03:56 97.5 F 103 H 12 121/86 99 11/05/17 23:55 97.6 F 97 H 14 127/81 94 11/05/17 19:25 98.3 F 111 H 14 130/75 95 11/05/17 15:33 98.9 F 16 127/80 94 11/05/17 12:00 98.5 F 14 134/84 95 Intake and Output 11/05/17 11/06/17 11/06/17 21:59 05:59 13:59 Intake Total 0 / 0 Output Total 550 / 550 325 / 325 Balance -550 / -550 -325 / -325 Intake: Oral 0 / 0 Output: Void Amount 550 / 550 325 / 325 Other: # Voids 1 # Bowel Movements 1 Weight 140 lb Medical - DS: Data Labs on day of discharge: Labs from last 24 hours 11/06/17 11/06/17 04:16 04:16 WBC 5.4 RBC 4.84 Hgb 14.1 Hct 42.7 MCV 88.3 MCH 29.1 MCHC 32.9 RDW 13.9 Plt Count 219 MPV 8.9 Total Counted 100 Seg Neutrophils % 71 Band Neutrophils % 2 Lymphocytes % 16 Monocytes % (Manual) 10 Myelocytes % 1 H Platelet Estimate Normal RBC Morphology Normal Sodium 139 Potassium 4.0 Chloride 97 Carbon Dioxide 26 Anion Gap 16.0 BUN 23 Creatinine 0.7 GFR Calculation 98 Glucose 95 Uric Acid 5.5 Calcium 9.9 Phosphorus 3.6 Magnesium 1.7 Total Bilirubin 0.3 Direct Bilirubin < 0.2 GGT 47 AST 59 H ALT 68 H Alkaline Phosphatase 72 Lactate Dehydrogenase 168 Total Protein 8.0 Albumin 3.8 Globulin 4.2 H Albumin/Globulin Ratio 0.9 L Triglycerides 181 H Medical - DS: A/P - Patient/Caregiver Discharge Instructions Activity: as per physical therapy, increase activity as tolerated Diet: Regular Diet Additional Instructions: transfer to swing bed status - Follow up Plan Follow up with: Lakisha Alexander DO [Primary Care Provider] - Disposition: [facility] Bed Prognosis: Serious Rehab Potential: Fair I certify that the patient requires SNF services: Yes Overall status at discharge: patient is progressing back to baseline Medical - DS: Qual - VTE Deep Vein Thrombosis/Pulmonary Embolism Present on Admission: No
[2017-11-07] MEDS ORDERED: PANTOPRAZOLE 40 MG PACKET PO SCH (07:30)
== END 2017-11-06 09:53 | disposition other institution (70) | DRG 917 ==
LOC: ED 15:56 → ICU 19:47 → MEDSUR 11-04 09:48
PROVIDERS: ADMIT Specialist; ATTEND Internal Medicine

== ENCOUNTER 2017-11-06 09:53 | Inpatient (IN) ==
[2017-11-06] MEDS ORDERED: ACETAMINOPHEN 325 MG TABLET PO PRN (13:23)
[2017-11-06] MEDS: 0.9 % SODIUM CHLORIDE 10 ML SYRINGE IV SCH ×2 (14:50→21:56)
[2017-11-06] MEDS: HYDROcodone/APAP 10/325MG TABLET PO PRN ×3 (14:50→23:53)
[2017-11-06] MEDS: DOCUSATE SODIUM 100 MG CAPSULE PO SCH (19:29)
[2017-11-06] MEDS ORDERED: traZODone HCL 50 MG TABLET PO PRN (21:00)
[2017-11-06] MEDS: IPRATROPIUM/ALBUTEROL SULFATE 1 PUFF INHALER INH SCH ×2 (21:26→21:32)
[2017-11-07] MEDS: HYDROcodone/APAP 10/325MG TABLET PO PRN ×2 (03:17→07:09)
[2017-11-07] MEDS: 0.9 % SODIUM CHLORIDE 10 ML SYRINGE IV SCH ×2 (06:03→13:52)
[2017-11-07] MEDS ORDERED: OMEPRAZOLE 20 MG CAPSULE PO SCH (07:30)
--- NOTE | 2017-11-07 07:45 | Internal Med History&Physical ---
Medical - H&P: HPI Patient information: Note initiated : 11/07/17 at 7:42 am Service Date, if different from initiated Date: [] Patient: Uriel Mike a 67 y/o M admitted on 11/06/17 for Unresponsive, Overdose. Chief Complaint: [] Chief complaint: need for physical therapy History of present illness: Mr. Mike is a 67 year old M admitted to swing bed status patient was admitted to swing the status after 7 day hospitalization following a suicidal baclofen overdose where and patient was managed in ICU on mechanical ventilation for 4 days as per poison control recommendations and airway protection. Patient was successfully extubated. He was evaluated by [facility] behavioral health services. He underwent aggressive physical therapy counseling and is currently not suicidal anymore. For needs of continuing physical therapy, reconditioning and close monitoring he was transferred to swing bed status. Medical - H&P: PMH Medical history: reviewed Pertinent family history: reviewed Drug use: none Medical - H&P: Meds Home Medications Medication Instructions Recorded Confirmed Type cholecalciferol (vitamin D3) 400 400 unit PO QDAY 08/29/15 11/06/17 History unit capsule ipratropium 20 mcg-albuterol 100 1 inh INHALATION QID 08/29/15 11/06/17 History mcg/actuation mist for inhalation omeprazole 20 mg capsule,delayed 20 mg PO QDAY 08/29/15 11/06/17 History release oxybutynin chloride ER 10 mg 10 mg PO QDAY 08/29/15 11/06/17 History tablet,extended release 24 hr polyethylene glycol 3350 17 17 g PO QDAY 08/29/15 11/06/17 History gram/dose oral powder tamsulosin 0.4 mg capsule 0.4 mg PO QDAY 08/29/15 11/06/17 History amitriptyline 50 mg tablet 50 mg PO QDAY tab 10/02/15 11/06/17 History HYDROcodone/APAP 10/325MG [[place] 1 tab PO Q4H PRN #15 tablet 02/23/17 11/06/17 Rx 10/325Mg] Allergies Allergy/AdvReac Type Severity Reaction Status Date / Time chlorpromazine Allergy Unknown unknown Verified 05/31/16 13:57 [From Thorazine] Phenothiazines Allergy Unknown unknown Verified 05/31/16 13:57 Sulfa (Sulfonamide Allergy Unknown unknown Verified 05/31/16 13:57 Antibiotics) Medical - H&P: Exam - Constitutional Vitals: Temp Pulse Resp BP Pulse Ox 97.1 F 96 H 20 114/8 93 11/07/17 06:45 11/07/17 00:00 11/07/17 06:45 11/07/17 06:45 11/07/17 06:45 General appearance: thin Exam: nonlabored breathing nondistended abdomen No lymphedema or pallor Chest clear to auscultation Neuro nonfocal Medical - H&P: A/P - Narrative A/P Narrative: 67-YEAR-OLD MALE FOUND DOWN BY ROOM MATE AFTER INGESTION OF UNKNOWN MEDS, LIKELY BACLOFEN. * deconditioning requiring physical therapy /nutrition supplements. On swing bed status * intentional baclofen overdose- presumed over 35 g baclofen intake. patient managed in ICU on mechanical ventilation for 4 days. [facility] consulted. patient will likely discharge home with her daughter in 24-48 hours * left lower lobe pneumonia- off antibiotics. Clinically resolved. * malnutrition-on oral feeds per dietary recommendations. continue in-hospital nutrition supplements Medical - H&P: Qual - VTE Deep Vein Thrombosis/Pulmonary Embolism Present on Admission: No
[2017-11-07] MEDS ORDERED: HYDROcodone/APAP 10/325MG TABLET PO PRN (08:15)
[2017-11-07] MEDS ORDERED: ENOXAPARIN 40 MG/0.4 ML SYRINGE SQ SCH (09:00)
[2017-11-07] MEDS ORDERED: OXYBUTYNIN CHLORIDE 5 MG TAB.XL.24H PO SCH (09:00)
[2017-11-07] MEDS ORDERED: TAMSULOSIN 0.4 MG CAPSULE PO SCH (09:00)
[2017-11-07] MEDS ORDERED: AMITRIPTYLINE 25 MG TABLET PO SCH (09:00)
[2017-11-07] MEDS ORDERED: VITAMIN D3 400 UNIT TABLET PO SCH (09:00)
--- NOTE | 2017-11-07 09:04 | Discharge Summary ---
Medical - DS: Prov Patient information: Note initiated : 11/07/17 at 9:00 am Service Date, if different from initiated Date: [] Patient: Uriel Mike 67 y/o M admitted on 11/06/17 for Unresponsive, Overdose. Chief Complaint: [] Date of admission: 11/06/17 09:53 Discharge date: 11/08/17 Primary care physician: Lakisha Alexander Medical - DS: Meds - Discharge Medications Active and Home Medications: Home Medications cholecalciferol (vitamin D3) 400 unit capsule 400 unit PO QDAY 08/29/15 [ History Confirmed 11/06/17 Last Taken 10/30/17 09:00 400 units] ipratropium 20 mcg-albuterol 100 mcg/actuation mist for inhalation 1 inh INHALATION QID 08/29/15 [History Confirmed 11/06/17 Last Taken 10/29/17 08:00] omeprazole 20 mg capsule,delayed release 20 mg PO QDAY 08/29/15 [History Confirmed 11/06/17 Last Taken 10/29/17 08:00] oxybutynin chloride ER 10 mg tablet,extended release 24 hr 10 mg PO QDAY [History Confirmed 11/06/17 Last Taken 10/29/17 08:00] polyethylene glycol 3350 17 gram/dose oral powder 17 g PO QDAY 08/29/15 [ History Confirmed 11/06/17 Last Taken Unknown] tamsulosin 0.4 mg capsule 0.4 mg PO QDAY 08/29/15 [History Confirmed 11/06/17 Last Taken Unknown] amitriptyline 50 mg tablet 50 mg PO QDAY tab 10/02/15 [History Confirmed Last Taken Unknown] HYDROcodone/APAP 10/325MG [[place] 10/325Mg] 1 tab PO Q4H PRN #15 tablet 02/23/17 [Rx Confirmed 11/06/17 Last Taken 11/06/17 09:15 1 tab] Medical - DS: Hosp Hospital course: DISCHARGE DIAGNOSIS * deconditioning requiring physical therapy /nutrition supplements. Discharging home with daughter. Clinically improved * intentional baclofen overdose- presumed over 35 g baclofen intake. patient managed in ICU on mechanical ventilation for 4 days. [facility] consulted.he is 1 long QT interval hydrated no acute * left lower lobe pneumonia- off antibiotics. Clinically resolved. * malnutrition-on oral feeds per dietary recommendations. continue in-hospital nutrition supplements HOSPITAL COURSE please refer to discharge summary dated 11/06 for details re: hospital course. This is a interim swing bed discharge without any significant interval changes or events Discharge diagnosis: . - Time Spent with Patient Total time spent providing and/or coordinating discharge services: Less than 30 minutes Medical - DS: Exam - Constitutional Vitals: Vital Signs Temp Pulse Resp BP Pulse Ox 11/07/17 06:45 97.1 F 20 114/8 93 11/07/17 00:00 98.0 F 96 H 14 109/68 94 11/06/17 20:00 97.3 F 97 H 18 119/81 96 Intake and Output 11/06/17 11/07/17 11/07/17 21:59 05:59 13:59 Intake Total 1080 / 1080 400 / 400 Output Total 500 / 500 Balance 1080 / 1080 400 / 400 -500 / -500 Intake: Oral 1080 / 1080 400 / 400 Output: Void Amount 500 / 500 Other: Meal Dinner Percent of Meal Consumed 95 Feeding Ability Independent # Voids 1 1 Weight 147 lb Medical - DS: A/P - Patient/Caregiver Discharge Instructions Activity: increase activity as tolerated, resume usual activities as tolerated Diet: Regular Diet Additional Instructions: follow-up PCP in 5 days - Follow up Plan Disposition: Home, Self-Care Prognosis: Fair Rehab Potential: Fair I certify that the patient requires SNF services: No Overall status at discharge: patient is progressing back to baseline (8.) Medical - DS: Qual - VTE Deep Vein Thrombosis/Pulmonary Embolism Present on Admission: No
[2017-11-07] MEDS: IPRATROPIUM/ALBUTEROL SULFATE 1 PUFF INHALER INH SCH ×2 (09:29→13:16)
[2017-11-07] MEDS: DOCUSATE SODIUM 100 MG CAPSULE PO SCH (09:29)
[2017-11-07] MEDS: POLYETHYLENE GLYCOL 3350 17 GM PACKET PO SCH ×2 (09:29→09:36)
[2017-11-07] MEDS ORDERED: PNEUMOCOCCAL 23-VAL P-SAC VAC 0.5 ML VIAL IM ONE (11:30)
[2017-11-07] MEDS ORDERED: oxyCODONE HCL 5 MG TABLET PO PRN (12:35)
== END 2017-11-07 15:25 | disposition home or self-care (01) | DRG 917 ==
LOC: MEDSUR 09:53
PROVIDERS: ADMIT Internal Medicine; ATTEND Internal Medicine